=== PATIENT | female | born 1965 | race Caucasian/White ===

== ENCOUNTER 2016-05-18 15:03 | Emergency (ER) | payer SELFPAY | END 2016-05-18 15:55 | disposition left against medical advice (07) | LOC: ER 15:51 | DX: R05 Cough (principal); Z53.21 Procedure and treatment not carried out due to patient leaving prior to being seen by health care provider ==

== ENCOUNTER 2016-06-03 05:32 | Emergency (ER) | payer BC ==
[~2016-06-03] VITALS: Ht 160 cm; Wt 79.4 kg
--- NOTE | 2016-06-03 05:51 | PHYS DOC ---
Adult General Chief Complaint Chief Complaint: CHEST WALL PAIN HPI HPI 50-year-old female with a history of hypertension and diabetes who presents to the emergency department today with chest pain. Her pain is been present for approximately 24-48 hours. She describes as a throbbing sensation of the left side of her chest. She also reports pain in her back on the left that is sharp shooting pain. It is worse with coughs. She recently is getting over an upper respiratory infection. She denies unilateral leg swelling hemoptysis personal or family history of blood clotting disorder. She denies having a history of cardiac disease. She denies nausea vomiting or diaphoresis. She denies the pain being ripping or tearing. She denies it being sudden or severe. Review of systems is negative for abdominal pain nausea vomiting fevers chills. She denies headache. All other review of systems is negative unless otherwise noted in history of present illness. Review of Systems Review of Systems SEE ABOVE. Current Medications Current Medications Current Medications Medications (Trade) Dose Ordered Sig/Jude Start Time Stop Time Status Last Admin Dose Admin Aspirin (Children'S Aspirin) 324 mg 1X ONCE 06/03/16 05:45 06/03/16 05:46 UNV Physical Exam Physical Exam Constitutional: Well developed, well nourished, no acute distress, non-toxic appearance. HENT: Normocephalic, atraumatic, bilateral external ears normal, oropharynx moist, no oral exudates, nose normal. [] Eyes: PERRLA, EOMI, conjunctiva normal, no discharge. Neck: Normal range of motion, no tenderness, supple, no stridor. [] Cardiovascular:Heart rate regular rhythm, no murmur Lungs & Thorax: Bilateral breath sounds clear to auscultation [] Abdomen: Bowel sounds normal, soft, no tenderness, no masses, no pulsatile masses. Skin: Warm, dry, no erythema, no rash. [] Back: No tenderness, no CVA tenderness. Extremities: No tenderness, no cyanosis, no clubbing, ROM intact, no edema. No clinical evidence of DVT present. No erythema or swelling legs. Neurologic: Alert and oriented X 3, normal motor function, normal sensory function, no focal deficits noted. [] Psychologic: Affect normal, judgement normal, mood normal. EKG EKG [] Initial EKG at 6 5:40 AM shows sinus rhythm with a regular rate. [place] is normal. Intervals within normal limits. ST segments are congruent. Not suggestive of ischemia. Radiology/Procedures Radiology/Procedures [] Course & Med Decision Making Course & Med Decision Making Pertinent Labs and Imaging studies reviewed. (See chart for details) [] 50-year-old female presenting to the emergency department this morning with chest pain. EKG unremarkable. Aspirin ordered. I ordered a chest x-ray along with blood work including a troponin. The patient was then signed out to Dr. Montgomery at 6 AM with plans to follow-up on blood work and reexamined patient along with cardiac risk stratification for disposition decision. Dragon Disclaimer Dragon Disclaimer This electronic medical record was generated, in whole or in part, using a voice recognition dictation system. Departure Departure Impression: Primary Impression: Chest pain Referrals: NO PCP (PCP) PAMELA HOBSON MD Jun 03, 2016 05:51
[2016-06-03] MEDS ORDERED: ASPIRIN 81 MG TAB.CHEW PO ONE (06:00)
[2016-06-03 06:02] LABS: BASO # 0.1 x10^3/uL (0.0-0.2); BASO % 1 % (0-3); EOS % 4 % (0-3); HEMATOCRIT 36.2 % (36.0-47.0); HEMOGLOBIN 12.2 g/dL (12.0-15.5); LYMPH # 2.6 x10^3/uL (1.0-4.8); LYMPH % 31 % (24-48); MEAN CORPUSCULAR HEMOGLOBIN 30 pg (25-35); MEAN CORPUSCULAR HGB CONC 34 g/dL (31-37); MEAN CORPUSCULAR VOLUME 88 fL (79-100); MONO % 7 % (0-9); NEUT % 57 % (31-73); PLATELET COUNT 246 x10^3/uL (140-400); RED BLOOD COUNT 4.12 x10^6/uL (3.50-5.40); RED CELL DISTRIBUTION WIDTH 13.9 % (11.5-14.5); WHITE BLOOD COUNT 8.3 x10^3/uL (4.0-11.0)
[2016-06-03 06:21] LABS: CALCIUM 9.2 mg/dL (8.5-10.1); GFR 58.2; POTASSIUM 3.4 mmol/L (3.5-5.1)
[2016-06-03 06:27] LABS: ALBUMIN 3.5 g/dL (3.4-5.0); DIRECT BILIRUBIN 0.1 mg/dL (0.0-0.2); TOTAL BILIRUBIN 0.4 mg/dL (0.2-1.0); TOTAL PROTEIN 7.3 g/dL (6.4-8.2)
[2016-06-03] MEDS ORDERED: AZIT250T6 PO (07:16)
--- NOTE | 2016-06-03 07:17 | PHYS DOC ---
Past Medical History Past Medical History: Asthma, Diabetes-Type II, Hypertension Past Surgical History: No Surgical History Alcohol Use: Occasionally Drug Use: None Adult General HPI HPI See dictation by for history of present illness, exam. Current Medications Current Medications Current Medications Medications (Trade) Dose Ordered Sig/Jude Start Time Stop Time Status Last Admin Dose Admin Aspirin (Children'S Aspirin) 324 mg 1X ONCE 06/03/16 06:00 06/03/16 06:01 DC 06/03/16 06:11 324 MG Allergies Allergies Allergies Coded Allergies Type Severity Reaction Last Updated Verified No Known Drug Allergies 06/03/16 No Current Patient Data Vital Signs Vital Signs Date Time Temp Pulse Resp B/P Pulse Ox O2 Delivery O2 Flow Rate FiO2 06/03/16 07:24 84 18 144/73 95 Room Air 06/03/16 05:40 97.1 97.1 Lab Values Laboratory Tests Test 06/03/16 05:45 White Blood Count 8.3x10^3/uL (4.0-11.0) Red Blood Count 4.12x10^6/uL (3.50-5.40) Hemoglobin 12.2g/dL (12.0-15.5) Hematocrit 36.2% (36.0-47.0) Mean Corpuscular Volume 88fL (79-100) Mean Corpuscular Hemoglobin 30pg (25-35) Mean Corpuscular Hemoglobin Concent 34g/dL (31-37) Red Cell Distribution Width 13.9% (11.5-14.5) Platelet Count 246x10^3/uL (140-400) Neutrophils (%) (Auto) 57% (31-73) Lymphocytes (%) (Auto) 31% (24-48) Monocytes (%) (Auto) 7% (0-9) Eosinophils (%) (Auto) 4% (0-3) H Basophils (%) (Auto) 1% (0-3) Neutrophils # (Auto) 4.7x10^3uL (1.8-7.7) Lymphocytes # (Auto) 2.6x10^3/uL (1.0-4.8) Monocytes # (Auto) 0.6x10^3/uL (0.0-1.1) Eosinophils # (Auto) 0.3x10^3/uL (0.0-0.7) Basophils # (Auto) 0.1x10^3/uL (0.0-0.2) Sodium Level 140mmol/L (136-145) Potassium Level 3.4mmol/L (3.5-5.1) L Chloride Level 103mmol/L (98-107) Carbon Dioxide Level 27mmol/L (21-32) Anion Gap 10 (6-14) Blood Urea Nitrogen 15mg/dL (7-20) Creatinine 1.0mg/dL (0.6-1.0) Estimated GFR (Cockcroft-Gault) 58.2 Glucose Level 221mg/dL (70-99) H Calcium Level 9.2mg/dL (8.5-10.1) Total Bilirubin 0.4mg/dL (0.2-1.0) Direct Bilirubin 0.1mg/dL (0.0-0.2) Aspartate Amino Transferase (AST) 18U/L (15-37) Alanine Aminotransferase (ALT) 23U/L (14-59) Alkaline Phosphatase 95U/L (46-116) Troponin I Quantitative < 0.017ng/mL (0.000-0.055) SC-Czy-J-Type Natriuretic Peptide 97pg/mL (0-124) Total Protein 7.3g/dL (6.4-8.2) Albumin 3.5g/dL (3.4-5.0) Lipase 152U/L (73-393) Laboratory Tests 06/03/16 05:45 Laboratory Tests 06/03/16 05:45 EKG EKG [] Radiology/Procedures Radiology/Procedures One view chest x-ray read by the radiologist, no acute cardiopulmonary findings. [] Course & Med Decision Making Course & Med Decision Making Pertinent Labs and Imaging studies reviewed. (See chart for details) 50-year-old female who was initially seen by Dr. Pastor, presents with the complaint of left-sided pain in the front and back of her chest for about 2 weeks. After test results were available, I went to talk to the patient some more. She told me that about 2 weeks ago she had "the flu" and felt better except that she kept coughing and now she continues to have a cough that is sometimes productive and pain on the left side of her chest that is worse with a deep breath or cough. It reminds her of pain that she had 27 years ago when she had pneumonia. Her also had the flu when she had it and ended up being admitted to the hospital for 2 or 3 days. He is better now. It sounds like this patient had a viral syndrome, possibly influenza, and got better but is left with a cough and some pleuritic chest pain. She is a smoker. Even though her chest x-ray is clear feel like it would be appropriate to treat her for possible early pneumonia and discussed this with her. She is agreeable to that plan. I don't believe her chest pain is cardiac. It's been ongoing for 2 weeks, sounds pleuritic, associated with a cough, troponin and EKG are negative in the ED. [] Dragon Disclaimer Dragon Disclaimer This electronic medical record was generated, in whole or in part, using a voice recognition dictation system. Departure Departure Impression: Primary Impression: Chest pain Additional Impression: Pneumonia Disposition: HOME, SELF-CARE Condition: STABLE Referrals: UNKNOWN PCP NAME (PCP) Patient Instructions: Pneumonia, Adult, [id number] Additional Instructions: As we discussed, we will treat you with antibiotics for possible pneumonia. Take ibuprofen for pain. Use [id number] cough medicine such as cough suppressant and cough drops as needed. If you become short of air or feel worse instead of better, return to emergency. Scripts Azithromycin (Azithromycin Tablet)250 Mg Tablet1 Pkg PO UD #6 TAB For pneumonia Take as directed Prov:JESSY CASTELLANO MD 06/03/16 Problem Qualifiers JESSY CASTELLANO MD Jun 03, 2016 07:16
[2016-06-03 07:24] VITALS: BP 144/73
--- NOTE | 2016-06-03 07:26 | RAD ---
Indication chest pain. A single view of the chest was obtained and is compared to an examination August 24, 2009. The heart and pulmonary vessels appear normal. The lungs are clear. There is no pleural fluid or pneumothorax. Calcified granuloma is noted in the left lung. A significant change in the appearance of the chest is not seen. IMPRESSION: No acute process. No significant change
--- NOTE | 2016-06-03 09:37 | EKG ---
[facility] [address] [place] [address] Test Date: 2016-06-03 Test Time: 05:40:37 Pat Name: BIGG MONSALVE Department: Room: Gender: F Center Maker Hand: : 1965 Requested By: PAMELA HOBSON Order Number: [id number] Reading MD: Malathi Bahena Measurements Intervals [place] Rate: 92 P: 24 MA: 148 QRS: 59 QRSD: 80 T: 54 QT: 360 QTc: 450 Interpretive Statements SINUS RHYTHM NORMAL EKG RI6.01 No previous ECG available for comparison Electronically Signed On 06-03-2016 20:07:35 CDT by Malathi Bahena
== END 2016-06-03 07:24 | disposition home or self-care (01) ==
LOC: ER 05:32
DX: R07.9 Chest pain, unspecified (principal); J18.9 Pneumonia, unspecified organism; I10 Essential (primary) hypertension; E11.9 Type 2 diabetes mellitus without complications; J45.909 Unspecified asthma, uncomplicated
CPT/HCPCS: 36415; 71010; 80048; 80076; 83690; 83880; 84484; 85027; 93005; 99285-25

== ENCOUNTER 2017-01-13 18:03 | Emergency (ER) | payer BC ==
[~2017-01-13 18:03] MED LIST: AZIT250T6 PO
[2017-01-13] MEDS ORDERED: ONDANSETRON PF 4 MG/2 ML VIAL. IV ONE (18:30)
[2017-01-13] MEDS ORDERED: fentaNYL PF VIAL 100 MCG/2 ML VIAL IV PRN (18:30)
[2017-01-13] MEDS ORDERED: IV NORMAL SALINE 1000ML BAG 1,000 ML IV SCH (18:30)
[2017-01-13] MEDS ORDERED: KETOROLAC 30 MG/ML INJ. IV ONE (18:30)
[2017-01-13 18:38] LABS: BILIRUBIN,URINE NEGATIVE (NEG); GLUCOSE,URINE NEGATIVE (NEG); NITRITE,URINE NEGATIVE (NEG); PH,URINE 5.5; PROTEIN,URINE NEGATIVE (NEG-TRACE); UROBILINOGEN,URINE 0.2 mg/dL (0.2 mg/dL)
--- NOTE | 2017-01-13 18:39 | ED.ADGEN ---
Past Medical History Past Medical History: Diabetes-Type II, Hypertension Past Surgical History: No Surgical History Alcohol Use: Occasionally Drug Use: None Adult General Chief Complaint Chief Complaint: FLANK PAIN HPI HPI Patient is a 51 year old woman, history of hypertension, type 2 diabetes mellitus ad 2 diabetes mellitus, hyperlipidemia, which is medically managed, who presents to the emergency department with a complaint of left-sided flank pain, also left back pain, and a feeling of shortness of breath. Patient states that she first noted the left flank pain about 3 days ago, states that it is worse when she lies flat, is persistent, but does wax and wane. She denies any dysuria, or notices of gross hematuria. No discharge vaginally vagina. Denies any injuries, states that she is not certain if she really feels "short of breath or is just because of the pain I don't take a deep breath". Denies any chest pain, states that she does have some nausea, but no vomiting. Denies any diarrhea, any fevers or chills, any sick contacts or exposures. No swelling extremities, no history of DVT in herself or family members. No recent travel or surgery. States that she been compliant with her based medications. Patient was sent to the emergency department for additional evaluation by her primary care provider. Review of Systems Review of Systems Constitutional: Denies fever or chills. [] Eyes: Denies change in visual acuity. [] HENT: Denies nasal congestion or sore throat. [] Respiratory: Denies cough, shortness of breath. Cardiovascular: Denies chest pain or edema. [] GI: Denies abdominal pain, nausea, vomiting, bloody stools or diarrhea. [] : Denies dysuria. [] Musculoskeletal: Denies back pain or joint pain. [] Left-sided flank pain, with some radiation to the left lower quadrant. Also left upper back pain. Integument: Denies rash. [] Neurologic: Denies headache, focal weakness or sensory changes. [] Endocrine: Denies polyuria or polydipsia. [] Lymphatic: Denies swollen glands. [] Psychiatric: Denies depression or anxiety. [] Current Medications Current Medications Current Medications Medications (Trade) Dose Ordered Sig/Jude Start Time Stop Time Status Last Admin Dose Admin Dicyclomine HCl (Bentyl) 10 mg 1X ONCE 01/13/17 21:30 01/13/17 21:31 DC Fentanyl Citrate (Fentanyl 2ml Vial) 25 mcg PRN Q15MIN PRN 01/13/17 18:30 01/13/17 21:52 DC 01/13/17 18:51 25 MCG Ketorolac Tromethamine (Toradol) 10 mg 1X ONCE 01/13/17 18:30 01/13/17 18:35 DC 01/13/17 18:50 10 MG Ondansetron HCl (Zofran) 4 mg 1X ONCE 01/13/17 18:30 01/13/17 18:35 DC 01/13/17 18:51 4 MG Sodium Chloride 1,000 ml @ 1,000 mls/hr Q1H 01/13/17 18:30 01/13/17 19:29 DC 01/13/17 18:49 1,000 MLS/HR Tamsulosin HCl (Flomax) 0.4 mg 1X ONCE 01/13/17 21:30 01/13/17 21:31 DC Allergies Allergies Allergies Coded Allergies Type Severity Reaction Last Updated Verified No Known Drug Allergies 06/03/16 No Physical Exam Physical Exam Constitutional: Well developed, well nourished, no acute distress, non-toxic appearance. [] HENT: Normocephalic, atraumatic, bilateral external ears normal, oropharynx moist, no oral exudates, nose normal. [] Eyes: PERRLA, EOMI, conjunctiva normal, no discharge. [] Neck: Normal range of motion, no tenderness, supple, no stridor. [] Cardiovascular:Heart rate regular rhythm, no murmur, S1, S2, no rubs or gallops. [] Lungs & Thorax: Bilateral breath sounds clear to auscultation, no wheezing, rhonchi, rales. No chest wall crepitus or tenderness. [] Abdomen: Bowel sounds normal, soft, patient with tenderness to palpation in the left lower quadrant, positive for CVA tenderness and left, no masses, no pulsatile masses. [] Skin: Warm, dry, no erythema, no rash. [] Back: No midline or paraspinal tenderness, positive for CVA tenderness on the left.] Extremities: No tenderness, no cyanosis, no clubbing, ROM intact, no edema. [] Neurologic: Alert and oriented X 3, normal motor function, normal sensory function, no focal deficits noted. [] Psychologic: Affect normal, judgement normal, mood normal. [] Current Patient Data Vital Signs Vital Signs Date Time Temp Pulse Resp B/P (MAP) Pulse Ox O2 Delivery O2 Flow Rate FiO2 01/13/17 19:56 18 98 Room Air 01/13/17 19:49 98 140/92 (108) 01/13/17 18:16 98.4 98.4 Lab Values Laboratory Tests Test 01/13/17 18:14 01/13/17 18:40 Urine Collection Type Unknown Urine Color Yellow Urine Clarity Clear Urine pH 5.5 Urine Specific [place] >=1.030 Urine Protein Negative mg/dL (NEG-TRACE) Urine Glucose (UA) Negative mg/dL (NEG) Urine Ketones (Stick) Negative mg/dL (NEG) Urine Blood Small (NEG) Urine Nitrite Negative (NEG) Urine Bilirubin Negative (NEG) Urine Urobilinogen Dipstick 0.2 mg/dL (0.2 mg/dL) Urine Leukocyte Esterase Negative (NEG) Urine RBC 1-2 /HPF (0-2) Urine WBC 5-10 /HPF (0-4) Urine Squamous Epithelial Cells Many /LPF Urine Bacteria Moderate /HPF (0-FEW) Urine Hyaline Casts Few /HPF Urine Mucus Marked /LPF White Blood Count 9.0 x10^3/uL (4.0-11.0) Red Blood Count 4.76 x10^6/uL (3.50-5.40) Hemoglobin 14.2 g/dL (12.0-15.5) Hematocrit 41.4 % (36.0-47.0) Mean Corpuscular Volume 87 fL (79-100) Mean Corpuscular Hemoglobin 30 pg (25-35) Mean Corpuscular Hemoglobin Concent 34 g/dL (31-37) Red Cell Distribution Width 13.3 % (11.5-14.5) Platelet Count 244 x10^3/uL (140-400) Neutrophils (%) (Auto) 66 % (31-73) Lymphocytes (%) (Auto) 25 % (24-48) Monocytes (%) (Auto) 5 % (0-9) Eosinophils (%) (Auto) 3 % (0-3) Basophils (%) (Auto) 1 % (0-3) Neutrophils # (Auto) 6.0 x10^3uL (1.8-7.7) Lymphocytes # (Auto) 2.3 x10^3/uL (1.0-4.8) Monocytes # (Auto) 0.4 x10^3/uL (0.0-1.1) Eosinophils # (Auto) 0.3 x10^3/uL (0.0-0.7) Basophils # (Auto) 0.1 x10^3/uL (0.0-0.2) D-Dimer (Nicole) < 0.27 ug/mlFEU Sodium Level 139 mmol/L (136-145) Potassium Level 3.8 mmol/L (3.5-5.1) Chloride Level 102 mmol/L (98-107) Carbon Dioxide Level 29 mmol/L (21-32) Anion Gap 8 (6-14) Blood Urea Nitrogen 22 mg/dL (7-20) H Creatinine 1.0 mg/dL (0.6-1.0) Estimated GFR (Cockcroft-Gault) 58.0 BUN/Creatinine Ratio 22 (6-20) H Glucose Level 218 mg/dL (70-99) H Calcium Level 9.5 mg/dL (8.5-10.1) Total Bilirubin 0.2 mg/dL (0.2-1.0) Aspartate Amino Transferase (AST) 16 U/L (15-37) Alanine Aminotransferase (ALT) 20 U/L (14-59) Alkaline Phosphatase 117 U/L (46-116) H Troponin I Quantitative < 0.017 ng/mL (0.000-0.055) Total Protein 7.4 g/dL (6.4-8.2) Albumin 3.6 g/dL (3.4-5.0) Albumin/Globulin Ratio 0.9 (1.0-1.7) L Lipase 186 U/L (73-393) Laboratory Tests 01/13/17 18:40 Laboratory Tests 01/13/17 18:40 EKG EKG EC: Sinus rhythm, heart rate 92 beats/minute, upright axis, QTC of 450, NM 146, QRS of 82, mild baseline artifact noted, the restrained motion, however no ST elevations or depressions identified, no evidence of acute ST abnormalities. As interpreted by me. Radiology/Procedures Radiology/Procedures [][facility] [address] [place] [address] IMAGING REPORT Signed PATIENT: BIGG MONSALVE ACCOUNT: [id number] : 1965 LOCATION: ER AGE: 51 SEX: F EXAM STATUS: REG ER ORD. PHYSICIAN: MARY JANE SCOTT DO REASON: L flank pain x 3 days PROCEDURE: CT ABDOMEN PELVIS WO CONTRAST EXAM: Abdomen and pelvis CT without intravenous contrast. HISTORY: Left flank pain. TECHNIQUE: Computed tomographic images of the abdomen and pelvis were obtained without contrast. Multiplanar reformatting was performed. *One or more of the following individualized dose reduction techniques were utilized for this examination: 1. Automated exposure control. 2. Adjustment of the mA and/or kV according to patient size. 3. Use of iterative reconstruction technique. COMPARISON: None. FINDINGS: Evaluation of the lower thorax demonstrate right middle lobe and lingular pleural parenchymal scarring. There is also bilateral posterior dependent and basilar atelectasis. The heart is normal in size. The liver is upper normal in size. The gallbladder, pancreas, spleen and adrenal glands are unremarkable. There is no evidence of nephrolithiasis or obstructive uropathy. The urinary bladder is decompressed. There is no appendicitis. There is moderate colonic stool. There is no bowel obstruction. The uterus and adnexal regions are unremarkable. There is no pathologically enlarged lymph node. There is aortic atherosclerosis. There is no suspicious osseous lesion. There is grade 1 anterolisthesis of L5 on S1. IMPRESSION: 1. No evidence of nephrolithiasis or obstructive uropathy. 2. No alternative acute abdominal or pelvic finding. Electronically signed by: Lorena Burleson MD (01/13/2017 7:23 PM) [facility] DICTATED and SIGNED BY: LORENA BURLESON MD DATE: 01/13/171919 CC: MARY JANE SCOTT DO; UNKNOWN PCP NAME ~ Course & Med Decision Making Course & Med Decision Making Pertinent Labs and Imaging studies reviewed. (See chart for details) Patient agreeable to receiving laboratory studies, and imaging in the emergency room, including CT of the abdomen and pelvis to further elucidate her left flank symptoms, to rule out renal calculi or other concerning cause. Patient also received chest x-ray, ECG, laboratory studies revealed hyperglycemia, but no evidence of other acutely concerning findings, urinalysis revealed a few RBCs , no evidence of infection. CT of abdomen and pelvis revealed no acutely concerning findings, chest x-ray revealed a few small nodules but no evidence of infection or other acutely concerning findings as well. On reevaluation patient states she is feeling better she does still have some pain in the left flank as stated. I did discuss findings with patient, patient is relieved with these findings, and states that she is looking forward to being discharged home , states that she will follow-up with primary care provider if symptoms persist. I did discuss with patient that although no concerning findings were identified during her examination today, that if she does develop any concerning symptoms, or worsening symptoms as discussed she should return to the ED at any time for additional evaluation. Patient voiced understanding and agreement. She was given medication in the ED for analgesia, inguinal difficulty , tolerating by mouth fluids and medications without issue, discharged from pressure from her cyclobenzaprine, clear and detailed return instructions and precautions, plan as above. Dragon Disclaimer Dragon Disclaimer This electronic medical record was generated, in whole or in part, using a voice recognition dictation system. Departure Impression: Primary Impression: Flank pain Additional Impression: Hematuria Disposition: 01 HOME, SELF-CARE Condition: IMPROVED Scripts Cyclobenzaprine Hcl (CYCLOBENZAPRINE HCL) 10 Mg Tablet 10 MG PO PRN TID Y for PAIN, #12 TAB Prov: MARY JANE SCOTT DO 01/13/17 Problem Qualifiers MARY JANE SCOTT DO Jan 13, 2017 18:39
[2017-01-13 18:45] LABS: BACTERIA,URINE MODERATE /HPF (0-FEW); SQUAMOUS EPITHELIAL CELL,UR MANY /LPF
[2017-01-13 18:50] LABS: BASO # 0.1 x10^3/uL (0.0-0.2); BASO % 1 % (0-3); EOS % 3 % (0-3); HEMATOCRIT 41.4 % (36.0-47.0); HEMOGLOBIN 14.2 g/dL (12.0-15.5); LYMPH # 2.3 x10^3/uL (1.0-4.8); LYMPH % 25 % (24-48); MEAN CORPUSCULAR HEMOGLOBIN 30 pg (25-35); MEAN CORPUSCULAR HGB CONC 34 g/dL (31-37); MEAN CORPUSCULAR VOLUME 87 fL (79-100); MONO % 5 % (0-9); NEUT % 66 % (31-73); PLATELET COUNT 244 x10^3/uL (140-400); RED BLOOD COUNT 4.76 x10^6/uL (3.50-5.40); RED CELL DISTRIBUTION WIDTH 13.3 % (11.5-14.5)
[2017-01-13 19:02] LABS: CALCIUM 9.5 mg/dL (8.5-10.1); POTASSIUM 3.8 mmol/L (3.5-5.1)
[2017-01-13 19:07] LABS: ALBUMIN 3.6 g/dL (3.4-5.0); ALBUMIN/GLOBULIN RATIO 0.9 (1.0-1.7); TOTAL BILIRUBIN 0.2 mg/dL (0.2-1.0); TOTAL PROTEIN 7.4 g/dL (6.4-8.2)
--- NOTE | 2017-01-13 19:26 | RAD ---
EXAM: Abdomen and pelvis CT without intravenous contrast. HISTORY: Left flank pain. TECHNIQUE: Computed tomographic images of the abdomen and pelvis were obtained without contrast. Multiplanar reformatting was performed. *One or more of the following individualized dose reduction techniques were utilized for this examination: 1. Automated exposure control. 2. Adjustment of the mA and/or kV according to patient size. 3. Use of iterative reconstruction technique. COMPARISON: None. FINDINGS: Evaluation of the lower thorax demonstrate right middle lobe and lingular pleural parenchymal scarring. There is also bilateral posterior dependent and basilar atelectasis. The heart is normal in size. The liver is upper normal in size. The gallbladder, pancreas, spleen and adrenal glands are unremarkable. There is no evidence of nephrolithiasis or obstructive uropathy. The urinary bladder is decompressed. There is no appendicitis. There is moderate colonic stool. There is no bowel obstruction. The uterus and adnexal regions are unremarkable. There is no pathologically enlarged lymph node. There is aortic atherosclerosis. There is no suspicious osseous lesion. There is grade 1 anterolisthesis of L5 on S1. IMPRESSION: 1. No evidence of nephrolithiasis or obstructive uropathy. 2. No alternative acute abdominal or pelvic finding. Electronically signed by: Lorena Burleson MD (01/13/2017 7:23 PM) [facility]
[2017-01-13 19:49] VITALS: BP 140/92
[2017-01-13] MEDS ORDERED: CYCL10TA2 PO (21:28)
[2017-01-13] MEDS ORDERED: DICYCLOMINE HCL 10 MG CAPSULE PO ONE (21:30)
[2017-01-13] MEDS ORDERED: TAMSULOSIN 0.4 MG CAP.ER.24H. PO ONE (21:30)
--- NOTE | 2017-01-14 06:32 | EKG ---
[facility] [address] [place] [address] Test Date: 2017-01-13 Test Time: 18:39:33 Pat Name: BIGG MONSALVE Department: Room: Gender: F Inspector Process: : 1965 Requested By: MARY JANE SCOTT Order Number: [id number] Reading MD: Adalid Boyce MD Measurements Intervals [place] Rate: 92 P: 51 NC: 146 QRS: 55 QRSD: 82 T: 52 QT: 360 QTc: 450 Interpretive Statements SINUS RHYTHM Electronically Signed On 01-18-2017 10:36:18 LARRY CAR OPERATOR by Adalid Boyce MD
--- NOTE | 2017-01-14 07:16 | RAD ---
2 view CXR: Clinical indications: Shortness of breath today. Comparison: June 03, 2016. Findings: Old granulomatous disease is seen. No acute lung infiltrate or pleural effusion or pulmonary edema or lung mass or pneumothorax is seen. The heart size, pulmonary vasculature, mediastinum and both ladonna are unremarkable. The osseous structures appear intact. Impression: No acute radiographic abnormality is seen.
== END 2017-01-13 21:34 | disposition home or self-care (01) ==
LOC: ER 18:03
DX: R10.32 Left lower quadrant pain (principal); R31.9 Hematuria, unspecified; M54.89 Other dorsalgia; E11.9 Type 2 diabetes mellitus without complications; I10 Essential (primary) hypertension; E78.5 Hyperlipidemia, unspecified
CPT/HCPCS: 36415; 71020; 74176; 80053; 81001; 83690; 84484; 85025; 85379; 87086; 93005; 96361; 96374; 96375; 99285; J1885; J2405; J3010; J7030

== ENCOUNTER 2017-12-18 17:18 | Emergency (ER) | payer BC ==
[~2017-12-18] VITALS: Ht 167.6 cm; Wt 81.6 kg
[~2017-12-18 17:18] MED LIST changes: +CYCL10TA2 PO
[2017-12-18 17:40] LABS: BASO % 0 % (0-3); EOS # 0.3 x10^3/uL (0.0-0.7); EOS % 4 % (0-3); HEMATOCRIT 40.8 % (36.0-47.0); HEMOGLOBIN 14.5 g/dL (12.0-15.5); LYMPH # 3.3 x10^3/uL (1.0-4.8); LYMPH % 38 % (24-48); MEAN CORPUSCULAR HEMOGLOBIN 31 pg (25-35); MEAN CORPUSCULAR HGB CONC 36 g/dL (31-37); MEAN CORPUSCULAR VOLUME 86 fL (79-100); MONO # 0.7 x10^3/uL (0.0-1.1); MONO % 8 % (0-9); NEUT # 4.3 x10^3uL (1.8-7.7); NEUT % 50 % (31-73); PLATELET COUNT 226 x10^3/uL (140-400); RED BLOOD COUNT 4.73 x10^6/uL (3.50-5.40); RED CELL DISTRIBUTION WIDTH 13.2 % (11.5-14.5); WHITE BLOOD COUNT 8.6 x10^3/uL (4.0-11.0)
[2017-12-18 17:49] LABS: CALCIUM 9.6 mg/dL (8.5-10.1); GFR 57.8
--- NOTE | 2017-12-18 18:12 | RAD ---
PORTABLE CHEST 1V History: CHEST PAIN; SOA. Comparison: January 13, 2017 image without prior report. Cardiomediastinal silhouette: Stable Lungs: Dense nodule left lung is stable compatible with granuloma. No focal airspace consolidation. There is evidence of air-trapping/emphysema. Pleura: No evidence of pleural effusion. Pneumothorax: None visualized Impression: No acute infiltrate identified. Electronically signed by: Edy Hagen MD (12/18/2017 6:09 PM) [id number]
[2017-12-18] MEDS ORDERED: ASPIRIN 325 MG TABLET PO ONE (18:30)
[2017-12-18] MEDS ORDERED: ALBUTEROL SULFATE 2.5 MG/3 ML NEBU. NEB ONE (18:30)
[2017-12-18] MEDS ORDERED: DEXAMETHASONE SOD PHOS 20 MG/5 ML VIAL. IV ONE (18:30)
--- NOTE | 2017-12-18 19:08 | EKG ---
[facility] [address] [place] [address] Test Date: 2017-12-18 Test Time: 17:27:26 Pat Name: BIGG MONSALVE Department: Room: Gender: F Technical Training Instructor: : 1965 Requested By: JEFERSON PARK Order Number: [id number] Reading MD: Adalid Boyce MD Measurements Intervals [place] Rate: 107 P: 39 CT: 148 QRS: 64 QRSD: 84 T: 38 QT: 350 QTc: 467 Interpretive Statements SINUS TACHYCARDIA Electronically Signed On 12-20-2017 9:05:23 CDT by Adalid Boyce MD
[2017-12-18] MEDS ORDERED: CONTRAST GIVEN. MC PRN (19:45)
--- NOTE | 2017-12-18 19:50 | RAD ---
CT ANGIOGRAPHY CHEST Indication: chest pain, soa; Omni 300, 60ml . Comparison: No comparison is available. Technique: After intravenous contrast administration, CT imaging was performed of the chest. MIP reconstructions were obtained. Exposure: One or more of the following individualized dose reduction techniques were utilized for this examination: 1. Automated exposure control 2. Adjustment of the mA and/or kV according to patient size 3. Use of iterative reconstruction technique. FINDINGS: Pulmonary arteries:No evidence of pulmonary embolism. Thoracic aorta: Mildly calcified, no evidence of aneurysm. Insufficiently opacified to confidently exclude dissection. Thyroid gland:Visualized aspect is unremarkable. Lymph nodes:No significant enlargement Heart: Calcification, not enlarged. Esophagus: Unremarkable Pleural spaces: No significant effusion Lungs: Emphysematous change with small blebs and bullae. Densely calcified granuloma in the left upper lobe. Trachea and central airways: Patent Bones: Degenerative spondylosis. Upper abdomen: Slices through the upper abdomen are limited due to the technique .No obvious acute findings. IMPRESSION: Negative for pulmonary embolism. Emphysema. Electronically signed by: Edy Hagen MD (12/18/2017 7:47 PM) [facility]
--- NOTE | 2017-12-18 19:53 | PHYS DOC ---
Past Medical History Past Medical History: Diabetes-Type II, Hypertension Past Surgical History: No Surgical History Alcohol Use: Occasionally Drug Use: None Adult General Chief Complaint Chief Complaint: CHEST PAIN HPI HPI Patient is a 52 year old female who presents to the ER with complaints of left sided chest pain that wraps to her left upper back and into L shoulder for the last year. Pt states she has been seen for these symptoms several times and no one can tell her what is wrong. Her PCP prescribed a muscle relaxer that is not helping. She states that she has been to the ER 3x for the same complaint and to her PCP several times, she reports frustration due to no one telling her what is wrong with her. She denies any palpitations, nausea, vomiting, or abdominal pain. States that at times she feels short of breath with the pain. She denies any syncope. States she is a smoker and smokes about a pack a day. Pt states that the pain in her L shoulder increases when she moves her arm. Review of Systems Review of Systems Constitutional: Denies fever or chills [] Eyes: Denies change in visual acuity, redness, or eye pain [] HENT: Denies nasal congestion or sore throat [] Respiratory: Denies cough or shortness of breath [] Cardiovascular: No additional information not addressed in HPI [] GI: Denies abdominal pain, nausea, vomiting, bloody stools or diarrhea [] : Denies dysuria or hematuria [] Musculoskeletal: Denies back pain or joint pain [] Integument: Denies rash or skin lesions [] Neurologic: Denies headache, focal weakness or sensory changes [] Endocrine: Denies polyuria or polydipsia [] All other systems were reviewed and found to be within normal limits, except as documented in this note. Current Medications Current Medications Current Medications Medications (Trade) Dose Ordered Sig/Jude Start Time Stop Time Status Last Admin Dose Admin Albuterol Sulfate (Ventolin Neb Soln) 2.5 mg 1X ONCE 12/18/17 18:30 12/18/17 18:31 DC 12/18/17 18:22 2.5 MG Aspirin (Celi Aspirin) 325 mg 1X ONCE 12/18/17 18:30 12/18/17 18:31 DC 12/18/17 18:15 325 MG Dexamethasone Sodium Phosphate (Decadron) 10 mg 1X ONCE 12/18/17 18:30 12/18/17 18:31 DC 12/18/17 18:16 10 MG Info (CONTRAST GIVEN -- Rx MONITORING) 1 each PRN DAILY PRN 12/18/17 19:45 12/18/17 20:51 DC Iohexol (Omnipaque 300 Mg/ml) 60 ml 1X ONCE 12/18/17 20:00 12/18/17 20:01 DC 12/18/17 19:40 60 ML Allergies Allergies Allergies Coded Allergies Type Severity Reaction Last Updated Verified No Known Drug Allergies 06/03/16 No Physical Exam Physical Exam Constitutional: Well developed, well nourished, no acute distress, non-toxic appearance. [] HENT: Normocephalic, atraumatic, bilateral external ears normal, oropharynx moist, no oral exudates, nose normal. [] Eyes: PERRLA, EOMI, conjunctiva normal, no discharge. [] Neck: Normal range of motion, no tenderness, supple, no stridor. [] Cardiovascular:Heart rate regular rhythm, no murmur [] Lungs & Thorax: Bilateral breath sounds clear to auscultation [] Abdomen: Bowel sounds normal, soft, no tenderness, no masses, no pulsatile masses. [] Skin: Warm, dry, no erythema, no rash. [] Back: No tenderness, no CVA tenderness. [] Extremities: No tenderness, no cyanosis, no clubbing, ROM intact, no edema. [] Neurologic: Alert and oriented X 3, normal motor function, normal sensory function, no focal deficits noted. [] Psychologic: Affect normal, judgement normal, mood normal. [] Current Patient Data Vital Signs Vital Signs Date Time Temp Pulse Resp B/P (MAP) Pulse Ox O2 Delivery O2 Flow Rate FiO2 12/18/17 20:00 70 18 117/66 (83) 99 12/18/17 18:30 Room Air 12/18/17 17:29 97.8 97.8 Lab Values Laboratory Tests Test 12/18/17 17:30 White Blood Count 8.6 x10^3/uL (4.0-11.0) Red Blood Count 4.73 x10^6/uL (3.50-5.40) Hemoglobin 14.5 g/dL (12.0-15.5) Hematocrit 40.8 % (36.0-47.0) Mean Corpuscular Volume 86 fL (79-100) Mean Corpuscular Hemoglobin 31 pg (25-35) Mean Corpuscular Hemoglobin Concent 36 g/dL (31-37) Red Cell Distribution Width 13.2 % (11.5-14.5) Platelet Count 226 x10^3/uL (140-400) Neutrophils (%) (Auto) 50 % (31-73) Lymphocytes (%) (Auto) 38 % (24-48) Monocytes (%) (Auto) 8 % (0-9) Eosinophils (%) (Auto) 4 % (0-3) H Basophils (%) (Auto) 0 % (0-3) Neutrophils # (Auto) 4.3 x10^3uL (1.8-7.7) Lymphocytes # (Auto) 3.3 x10^3/uL (1.0-4.8) Monocytes # (Auto) 0.7 x10^3/uL (0.0-1.1) Eosinophils # (Auto) 0.3 x10^3/uL (0.0-0.7) Basophils # (Auto) 0.0 x10^3/uL (0.0-0.2) Sodium Level 140 mmol/L (136-145) Potassium Level 4.0 mmol/L (3.5-5.1) Chloride Level 102 mmol/L (98-107) Carbon Dioxide Level 26 mmol/L (21-32) Anion Gap 12 (6-14) Blood Urea Nitrogen 20 mg/dL (7-20) Creatinine 1.0 mg/dL (0.6-1.0) Estimated GFR (Cockcroft-Gault) 57.8 Glucose Level 192 mg/dL (70-99) H Calcium Level 9.6 mg/dL (8.5-10.1) Troponin I Quantitative < 0.017 ng/mL (0.000-0.055) Laboratory Tests 12/18/17 17:30 Laboratory Tests 12/18/17 17:30 EKG EKG [] Radiology/Procedures Radiology/Procedures PROCEDURE: CT ANGIOGRAPHY CHEST CT ANGIOGRAPHY CHEST Indication: chest pain, soa; Omni 300, 60ml . Comparison: No comparison is available. Technique: After intravenous contrast administration, CT imaging was performed of the chest. MIP reconstructions were obtained. Exposure: One or more of the following individualized dose reduction techniques were utilized for this examination: 1. Automated exposure control 2. Adjustment of the mA and/or kV according to patient size 3. Use of iterative reconstruction technique. FINDINGS: Pulmonary arteries:No evidence of pulmonary embolism. Thoracic aorta: Mildly calcified, no evidence of aneurysm. Insufficiently opacified to confidently exclude dissection. Thyroid gland:Visualized aspect is unremarkable. Lymph nodes:No significant enlargement Heart: Calcification, not enlarged. Esophagus: Unremarkable Pleural spaces: No significant effusion Lungs: Emphysematous change with small blebs and bullae. Densely calcified granuloma in the left upper lobe. Trachea and central airways: Patent Bones: Degenerative spondylosis. Upper abdomen: Slices through the upper abdomen are limited due to the technique .No obvious acute findings. IMPRESSION: Negative for pulmonary embolism. Emphysema. [] PROCEDURE: PORTABLE CHEST 1V PORTABLE CHEST 1V History: CHEST PAIN; SOA. Comparison: January 13, 2017 image without prior report. Cardiomediastinal silhouette: Stable Lungs: Dense nodule left lung is stable compatible with granuloma. No focal airspace consolidation. There is evidence of air-trapping/emphysema. Pleura: No evidence of pleural effusion. Pneumothorax: None visualized Impression: No acute infiltrate identified. Course & Med Decision Making Course & Med Decision Making Pertinent Labs and Imaging studies reviewed. (See chart for details) [] Dragon Disclaimer Dragon Disclaimer This electronic medical record was generated, in whole or in part, using a voice recognition dictation system. Departure Departure Impression: Primary Impression: Left shoulder pain Additional Impression: Chest pain Disposition: 01 HOME, SELF-CARE Condition: STABLE Referrals: UNKNOWN PCP NAME (PCP) BRANDY HENRY MD Patient Instructions: Chest Pain (Nonspecific)-Brief, Shoulder Pain, Easy-to- Read Additional Instructions: Stop smoking. Follow up with your primary care doctor about your emphysema and chest pain. Recommend evaluation of your Left shoulder by an orthopedic doctor, Dr. Henry's information has been provided. Return to the ER if you symptoms worsen Problem Qualifiers Primary Impression: Left shoulder pain Chronicity: acute Qualified Codes: M25.512 - Pain in left shoulder SUKHDEEPHALEY SENIOR RECRUITER Dec 18, 2017 19:53
[2017-12-18 20:00] VITALS: BP 117/66
[2017-12-18] MEDS ORDERED: IOHEXOL 300 MG/ML 100ML VIAL. IV ONE (20:00)
== END 2017-12-18 20:50 | disposition home or self-care (01) ==
LOC: ER 17:18
DX: R07.89 Other chest pain (principal); M25.512 Pain in left shoulder; F17.200 Nicotine dependence, unspecified, uncomplicated; E11.9 Type 2 diabetes mellitus without complications; I10 Essential (primary) hypertension
CPT/HCPCS: 36415; 71045; 71275; 80048; 84484; 85025; 93005; 94640; 96374; 99285; J1100; J7613; Q9967

== ENCOUNTER 2018-05-12 00:38 | Inpatient (IN) | payer BC ==
[~2018-05-12] VITALS: Ht 167.6 cm; Wt 75.9 kg
[2018-05-12] VITALS (10 sets, daily range): BP systolic 95–159; BP diastolic 46–97
[2018-05-12] MEDS ORDERED: IV NORMAL SALINE 1000ML BAG 1,000 ML IV ONE (01:30)
[2018-05-12 01:33] LABS: BILIRUBIN,URINE NEGATIVE (NEG); CLARITY,URINE CLEAR; COLOR,URINE YELLOW; NITRITE,URINE NEGATIVE (NEG); PROTEIN,URINE NEGATIVE (NEG-TRACE); UROBILINOGEN,URINE 0.2 mg/dL (0.2 mg/dL)
[2018-05-12 01:33] LABS: BASO # 0.1 x10^3/uL (0.0-0.2); BASO % 1 % (0-3); EOS # 0.3 x10^3/uL (0.0-0.7); EOS % 4 % (0-3); HEMATOCRIT 43.8 % (36.0-47.0); HEMOGLOBIN 14.7 g/dL (12.0-15.5); LYMPH # 1.9 x10^3/uL (1.0-4.8); LYMPH % 24 % (24-48); MEAN CORPUSCULAR HEMOGLOBIN 29 pg (25-35); MEAN CORPUSCULAR HGB CONC 34 g/dL (31-37); MEAN CORPUSCULAR VOLUME 86 fL (79-100); MONO # 0.8 x10^3/uL (0.0-1.1); MONO % 10 % (0-9); NEUT # 4.8 x10^3uL (1.8-7.7); NEUT % 61 % (31-73); PLATELET COUNT 201 x10^3/uL (140-400); RED BLOOD COUNT 5.11 x10^6/uL (3.50-5.40); RED CELL DISTRIBUTION WIDTH 13.5 % (11.5-14.5); WHITE BLOOD COUNT 7.8 x10^3/uL (4.0-11.0)
[2018-05-12 01:37] LABS: RBC,URINE OCC /HPF (0-2)
[2018-05-12 01:38] LABS: BACTERIA,URINE MODERATE /HPF (0-FEW); SQUAMOUS EPITHELIAL CELL,UR MOD /LPF
[2018-05-12 01:40] LABS: CALCIUM 9.4 mg/dL (8.5-10.1); GFR 57.8; POTASSIUM 3.7 mmol/L (3.5-5.1); PROTHROMBIN TIME PATIENT 12.7 SEC (11.7-14.0)
--- NOTE | 2018-05-12 01:42 | PHYS DOC ---
Past Medical History Past Medical History: Diabetes-Type II, Hypertension Past Surgical History: No Surgical History Alcohol Use: Occasionally Drug Use: None Adult General Chief Complaint Chief Complaint: CHEST PAIN HPI HPI Patient is a 52 year old female presents to the ED with chest pain. This started one week ago. She went to her PCP with flulike symptoms and chest pain. She was told that her blood pressure was high and to take an extra blood pressure medicine. Today she coughed up a "hunk of blood", had a fever 103, cough, and persistent chest pain that is retrosternal, described as a 5/10 pressure-like pain which radiates to the left arm. She reports vomiting after breakfast between 7-9am this morning. She has not had any nausea or vomiting since then. Review of Systems Review of Systems Constitutional: Admits fever and chills. Eyes: Denies change in visual acuity, redness, or eye pain [] HENT: Denies nasal congestion or sore throat [] Respiratory: Admits cough. Denies shortness of breath [] Cardiovascular: Admits chest pain. Denies palpitations. GI: Admits vomiting. Denies nausea, abdominal pain, or diarrhea [] : Denies dysuria or hematuria [] Musculoskeletal: Denies back pain or joint pain [] Integument: Denies rash or skin lesions [] Neurologic: Denies headache, focal weakness or sensory changes [] Complete systems were reviewed and found to be within normal limits, except as documented in this note. Current Medications Current Medications Current Medications Medications (Trade) Dose Ordered Sig/Jude Start Time Stop Time Status Last Admin Dose Admin Sodium Chloride 1,000 ml @ 1,000 mls/hr 1X ONCE 05/12/18 01:30 05/12/18 02:29 DC 05/12/18 01:37 1,000 MLS/HR Allergies Allergies Allergies Coded Allergies Type Severity Reaction Last Updated Verified No Known Drug Allergies 06/03/16 No Physical Exam Physical Exam Constitutional: Well developed, well nourished, no acute distress, non-toxic appearance. [] HENT: Normocephalic, atraumatic, oropharynx moist, no oral exudates, nose normal , oropharynx slightly erythematous. [] Eyes: EOMI, conjunctiva normal, no discharge. [] Neck: Normal range of motion, no tenderness, supple, no stridor. [] Cardiovascular: Tachycardic. Regular rhythm. Systolic murmur. Lungs & Thorax: Bilateral breath sounds clear to auscultation [] Abdomen: Soft, no tenderness Skin: Warm, dry, no erythema, no rash. [] Back: No tenderness, no CVA tenderness. [] Extremities: No tenderness, ROM intact, no edema. [] Neurologic: Alert and oriented, normal motor function, normal sensory function, no focal deficits noted. [] Psychologic: Affect normal, judgement normal, mood normal. [] Current Patient Data Vital Signs Vital Signs Date Time Temp Pulse Resp B/P (MAP) Pulse Ox O2 Delivery O2 Flow Rate FiO2 05/12/18 02:00 92 20 172/94 (120) 95 Room Air 05/12/18 00:40 98.4 98.4 Lab Values Laboratory Tests Test 05/12/18 00:40 05/12/18 00:46 05/12/18 00:55 Urine Collection Type Unknown Urine Color Yellow Urine Clarity Clear Urine pH 5.0 Urine Specific [place] 1.025 Urine Protein Negative mg/dL (NEG-TRACE) Urine Glucose (UA) Negative mg/dL (NEG) Urine Ketones (Stick) Negative mg/dL (NEG) Urine Blood Small (NEG) Urine Nitrite Negative (NEG) Urine Bilirubin Negative (NEG) Urine Urobilinogen Dipstick 0.2 mg/dL (0.2 mg/dL) Urine Leukocyte Esterase Moderate (NEG) Urine RBC Occ /HPF (0-2) Urine WBC 11-20 /HPF (0-4) Urine Squamous Epithelial Cells Mod /LPF Urine Bacteria Moderate /HPF (0-FEW) Urine Mucus Mod /LPF POC Urine HCG, Qualitative Hcg negative (Negative) White Blood Count 7.8 x10^3/uL (4.0-11.0) Red Blood Count 5.11 x10^6/uL (3.50-5.40) Hemoglobin 14.7 g/dL (12.0-15.5) Hematocrit 43.8 % (36.0-47.0) Mean Corpuscular Volume 86 fL (79-100) Mean Corpuscular Hemoglobin 29 pg (25-35) Mean Corpuscular Hemoglobin Concent 34 g/dL (31-37) Red Cell Distribution Width 13.5 % (11.5-14.5) Platelet Count 201 x10^3/uL (140-400) Neutrophils (%) (Auto) 61 % (31-73) Lymphocytes (%) (Auto) 24 % (24-48) Monocytes (%) (Auto) 10 % (0-9) H Eosinophils (%) (Auto) 4 % (0-3) H Basophils (%) (Auto) 1 % (0-3) Neutrophils # (Auto) 4.8 x10^3uL (1.8-7.7) Lymphocytes # (Auto) 1.9 x10^3/uL (1.0-4.8) Monocytes # (Auto) 0.8 x10^3/uL (0.0-1.1) Eosinophils # (Auto) 0.3 x10^3/uL (0.0-0.7) Basophils # (Auto) 0.1 x10^3/uL (0.0-0.2) Prothrombin Time 12.7 SEC (11.7-14.0) Prothrombin Time INR 1.0 (0.8-1.1) Sodium Level 142 mmol/L (136-145) Potassium Level 3.7 mmol/L (3.5-5.1) Chloride Level 104 mmol/L (98-107) Carbon Dioxide Level 28 mmol/L (21-32) Anion Gap 10 (6-14) Blood Urea Nitrogen 16 mg/dL (7-20) Creatinine 1.0 mg/dL (0.6-1.0) Estimated GFR (Cockcroft-Gault) 57.8 BUN/Creatinine Ratio 16 (6-20) Glucose Level 189 mg/dL (70-99) H Hemoglobin A1c 6.2 % (4.8-5.6) H Lactic Acid Level 1.1 mmol/L (0.4-2.0) Calcium Level 9.4 mg/dL (8.5-10.1) Magnesium Level 1.9 mg/dL (1.8-2.4) Total Bilirubin 0.4 mg/dL (0.2-1.0) Aspartate Amino Transferase (AST) 16 U/L (15-37) Alanine Aminotransferase (ALT) 20 U/L (14-59) Alkaline Phosphatase 90 U/L (46-116) Creatine Kinase 68 U/L (26-192) Creatine Kinase MB (Mass) 0.7 ng/mL (0.0-3.6) Creatine Kinase MB Relative Index % (0-4) Troponin I Quantitative < 0.017 ng/mL (0.000-0.055) CA-Hnf-C-Type Natriuretic Peptide 33 pg/mL (0-124) Total Protein 7.7 g/dL (6.4-8.2) Albumin 3.7 g/dL (3.4-5.0) Albumin/Globulin Ratio 0.9 (1.0-1.7) L Lipase 160 U/L (73-393) Laboratory Tests 05/12/18 00:55 Laboratory Tests 05/12/18 00:55 Microbiology 05/12/18 Urine Culture - Final, Complete 05/12/18 Urine Culture Result 1 (SAURAV) - Final, Complete EKG EKG Obtained at 0046 17/09/2018. Sinus tachycardia at 105 bpm. No signs of ST elevation Radiology/Procedures Radiology/Procedures PROCEDURE: CT ANGIOGRAPHY CHEST CTA of chest dated 05/12/2018. No comparison available. CLINICAL INDICATION: Chest pain and hemoptysis. TECHNIQUE: Contiguous axial imaging of the chest performed following the intravenous administration of 75 cc Omnipaque 350. Study was performed as dedicated PE protocol with thin cut coronal MIPS 3-D reconstruction One or more of the following individualized dose reduction techniques were utilized for this examination: 1. Automated exposure control 2. Adjustment of the mA and/or kV according to patient size 3. Use of iterative reconstruction technique. FINDINGS: Contrast bolus is adequate. No evidence of central, lobar or segmental pulmonary embolus. The subsegmental branches are not well evaluated based on technique. Heart size within normal limits. No pericardial effusion. Coronary artery calcifications. Mild ectasia of the ascending thoracic aorta measuring 3.7 cm transverse. No mediastinal, hilar or axillary lymphadenopathy. Borderline enlarged subcarinal and right paratracheal lymph nodes measure up to 8 mm short axis. Thyroid gland is unremarkable. Central airways are patent. Mild emphysema. Mild diffuse bronchial wall thickening. Mild biapical scarring. Calcified granuloma left upper lobe. No consolidation or pleural effusion. Limited images of upper abdomen unremarkable. No acute bony abnormality. IMPRESSION: 1. No evidence of central, lobar or segmental pulmonary embolus. 2. Diffuse bronchial wall thickening and mild emphysema. 3. Borderline enlarged mediastinal lymph nodes, nonspecific. Electronically signed by: Edy Rowe MD (05/12/2018 3:04 AM) [facility] Course & Med Decision Making Course & Med Decision Making Pertinent Labs and Imaging studies reviewed. (See chart for details) Patient is a 52-year-old female who presents to the ED with chest pain, fever, and hemoptysis. Heart score 4. PERC score positive. CTA chest showed no signs of PE. Lab work unremarkable. Initial troponin negative. UA mildly suspicious for infection. Empiric antibiotics given. EKG stable. Given risk factors patient requiring admission for further evaluation and treatment. Discussed with Dr. Marie (hospitalist), who is in agreement with admission. Discussed findings and plan with patient, who acknowledges understanding and agreement. Dragon Disclaimer Dragon Disclaimer This electronic medical record was generated, in whole or in part, using a voice recognition dictation system. Departure Departure Impression: Primary Impression: Chest pain Additional Impressions: History of hemoptysis Urinary tract infection Disposition: ADMITTED INPATIENT Admitting Physician: Other (CYNTHIA) Condition: STABLE Referrals: UNKNOWN PCP NAME (PCP) Scripts Lactobacillus Rhamnosus Gg (CULTURELLE) 1 Each Cap.sprink 1 CAP PO BID for diarrhea for 7 Days, #14 CAP Prov: CAMILLE MARIE MD 05/13/18 Lisinopril (LISINOPRIL) 40 Mg Tablet 40 MG PO DAILY for HTN for 30 Days, #30 TAB 2 Refills Prov: CAMILLE MARIE MD 05/13/18 Chlorthalidone (CHLORTHALIDONE ) 25 Mg Tablet 25 MG PO DAILY for HTN for 30 Days, #30 TAB 2 Refills Prov: CAMILLE MARIE MD 05/13/18 Problem Qualifiers Primary Impression: Chest pain Chest pain type: unspecified Qualified Codes: R07.9 - Chest pain, unspecified Additional Impressions: Urinary tract infection Urinary tract infection type: acute cystitis Hematuria presence: with hematuria Qualified Codes: N30.01 - Acute cystitis with hematuria EDY ACEVEDO DO May 12, 2018 01:42
[2018-05-12 01:48] LABS: ALBUMIN 3.7 g/dL (3.4-5.0); ALBUMIN/GLOBULIN RATIO 0.9 (1.0-1.7); MAGNESIUM 1.9 mg/dL (1.8-2.4); TOTAL BILIRUBIN 0.4 mg/dL (0.2-1.0); TOTAL PROTEIN 7.7 g/dL (6.4-8.2)
[2018-05-12 01:56] LABS: CREATINE KINASE 68 U/L (26-192)
[2018-05-12] MEDS ORDERED: ONDANSETRON PF 4 MG/2 ML VIAL. IV PRN (02:15)
[2018-05-12] MEDS ORDERED: fentaNYL PF VIAL 100 MCG/2 ML VIAL IV PRN (02:15)
[2018-05-12] MEDS ORDERED: CONTRAST GIVEN. MC PRN ×2 (02:30→16:15)
[2018-05-12] MEDS ORDERED: IOHEXOL 350 MG/ML 100 ML VIAL. IV ONE (02:30)
[2018-05-12] MEDS ORDERED: ASPIRIN 325 MG TABLET PO ONE (02:45)
[2018-05-12] MEDS ORDERED: cefTRIAXone IV Push 1 GM VIAL. IVP ONE (02:45)
--- NOTE | 2018-05-12 03:07 | RAD ---
CTA of chest dated 05/12/2018. No comparison available. CLINICAL INDICATION: Chest pain and hemoptysis. TECHNIQUE: Contiguous axial imaging of the chest performed following the intravenous administration of 75 cc Omnipaque 350. Study was performed as dedicated PE protocol with thin cut coronal MIPS 3-D reconstruction One or more of the following individualized dose reduction techniques were utilized for this examination: 1. Automated exposure control 2. Adjustment of the mA and/or kV according to patient size 3. Use of iterative reconstruction technique. FINDINGS: Contrast bolus is adequate. No evidence of central, lobar or segmental pulmonary embolus. The subsegmental branches are not well evaluated based on technique. Heart size within normal limits. No pericardial effusion. Coronary artery calcifications. Mild ectasia of the ascending thoracic aorta measuring 3.7 cm transverse. No mediastinal, hilar or axillary lymphadenopathy. Borderline enlarged subcarinal and right paratracheal lymph nodes measure up to 8 mm short axis. Thyroid gland is unremarkable. Central airways are patent. Mild emphysema. Mild diffuse bronchial wall thickening. Mild biapical scarring. Calcified granuloma left upper lobe. No consolidation or pleural effusion. Limited images of upper abdomen unremarkable. No acute bony abnormality. IMPRESSION: 1. No evidence of central, lobar or segmental pulmonary embolus. 2. Diffuse bronchial wall thickening and mild emphysema. 3. Borderline enlarged mediastinal lymph nodes, nonspecific. Electronically signed by: Edy Rowe MD (05/12/2018 3:04 AM) [facility]
--- NOTE | 2018-05-12 06:52 | EKG ---
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
--- NOTE | 2018-05-12 09:04 | PDOC2 ---
CARLOS MOREL SAMPLE COORDINATOR 05/12/18 0904: CARDIAC CONSULT DATE OF CONSULT Date of Consult DATE: 05/12/18 TIME: 08:30 REASON FOR CONSULT Reason for Consult: Chest pain REFERRING PHYSICIAN Referring Physician: Basilio SOURCE Source: Chart review, Patient HISTORY OF PRESENT ILLNESS HISTORY OF PRESENT ILLNESS This is a pleasant 52 yo female admitted for complains of chest pain. Reports of high BP lately and has been taking lisinopril and actually saw her PCP and was given Rx for BB and cholesterol meds but has not filled yet. Reports that in the last 3 days she has been having fever episode with temp at times at 102 and also x1 cough out an chink of bright red blood the other day. Reports that she has been coughing, nasal congestion, no heartburn. She has been taking thera flu both daytime and nighttime. Her BP has been high running sometimes at 180s/118. 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 She has been having chest pressure with activity and also MCCLURE even before her respiratory symptoms which she thought she had the flu. Reports that it felt like there is fullness and like pressure mid chest but no jaw or arm discomfort. Sometimes she feels like she is having palpitations. No nausea or vomiting. She has COPD but has not been using her albuterol inhalers and no maintenance inhalers. She was DM2 in the past but changed her diet and lost wt and has been off metformin. No known CAD, VTE, arrhythmias. No known previous cardiac testing. PAST MEDICAL HISTORY Cardiovascular: HTN, Hyperlipidemia Pulmonary: COPD CENTRAL NERVOUS SYSTEM: Other (No pertinent history ) GI: No pertinent hx Heme/Onc: No pertinent hx Hepatobiliary: No pertinent hx Psych: No pertinent hx Musculoskeletal: Osteoarthritis Rheumatologic: No pertinent hx Infectious disease: No pertinent hx ENT: No pertinent hx Renal/: Other (3 yrs postmenopausal ) Endocrine: Diabetes Dermatology: No pertinent hx PAST SURGICAL HISTORY Past Surgical History: No pertinent history FAMILY HISTORY Family History: Heart Disease (father) SOCIAL HISTORY Smoke: <1 pack per day (>30 yrs) ALCOHOL: none 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) CURRENT MEDICATIONS CURRENT MEDICATIONS Current Medications Medications (Trade) Dose Ordered Sig/Jude Route PRN Reason Start Time Stop Time Status Last Admin Dose Admin Sodium Chloride 1,000 ml @ 1,000 mls/hr 1X ONCE IV 05/12/18 01:30 05/12/18 02:29 DC 05/12/18 01:37 Iohexol (Omnipaque 350 Mg/ml) 60 ml 1X ONCE IV 05/12/18 02:30 05/12/18 02:31 DC 05/12/18 02:34 Ceftriaxone Sodium (Rocephin) 1 gm 1X ONCE IVP 05/12/18 02:45 05/12/18 02:46 DC 05/12/18 02:53 Aspirin (Celi Aspirin) 325 mg 1X ONCE PO 05/12/18 02:45 05/12/18 02:46 DC 05/12/18 02:53 ALLERGIES ALLERGIES: Coded Allergies: No Known Drug Allergies (Unverified , 06/03/16) ROS Review of System 14 point ROS evaluated with pertinent positives noted per HPI PHYSICAL EXAM General: Alert, Oriented X3, Cooperative, No acute distress HEENT: Atraumatic, Mucous membr. moist/pink, Other (nasal congestion) Lungs: Clear to auscultation, Normal air movement Heart: Regular rate (SR), Normal S1, Normal S2, Other (2/6 systolic murmur to LLS border) Abdomen: Soft, No tenderness Extremities: No cyanosis, No edema Skin: No breakdown, No significant lesion Neuro: Normal speech, Sensation intact Psych/Mental Status: Mental status NL, Mood NL MUSCULOSKELETAL: Osteoarthritic changes both hands VITALS VITALS Vital Signs Date Time Temp Pulse Resp B/P (MAP) Pulse Ox O2 Delivery O2 Flow Rate FiO2 05/12/18 08:00 Room Air 05/12/18 08:00 98.6 88 18 140/97 (111) 96 98.6 LABS Lab: Laboratory Tests Test 05/12/18 00:40 05/12/18 00:46 05/12/18 00:55 05/12/18 05:15 Urine Collection Type Unknown Urine Color Yellow Urine Clarity Clear Urine pH 5.0 Urine Specific [place] 1.025 Urine Protein Negative mg/dL (NEG-TRACE) Urine Glucose (UA) Negative mg/dL (NEG) Urine Ketones (Stick) Negative mg/dL (NEG) Urine Blood Small (NEG) Urine Nitrite Negative (NEG) Urine Bilirubin Negative (NEG) Urine Urobilinogen Dipstick 0.2 mg/dL (0.2 mg/dL) Urine Leukocyte Esterase Moderate (NEG) Urine RBC Occ /HPF (0-2) Urine WBC 11-20 /HPF (0-4) Urine Squamous Epithelial Cells Mod /LPF Urine Bacteria Moderate /HPF (0-FEW) Urine Mucus Mod /LPF Bedside Urine HCG, Qualitative Hcg negative (Negative) White Blood Count 7.8 x10^3/uL (4.0-11.0) Red Blood Count 5.11 x10^6/uL (3.50-5.40) Hemoglobin 14.7 g/dL (12.0-15.5) Hematocrit 43.8 % (36.0-47.0) Mean Corpuscular Volume 86 fL (79-100) Mean Corpuscular Hemoglobin 29 pg (25-35) Mean Corpuscular Hemoglobin Concent 34 g/dL (31-37) Red Cell Distribution Width 13.5 % (11.5-14.5) Platelet Count 201 x10^3/uL (140-400) Neutrophils (%) (Auto) 61 % (31-73) Lymphocytes (%) (Auto) 24 % (24-48) Monocytes (%) (Auto) 10 % (0-9) Eosinophils (%) (Auto) 4 % (0-3) Basophils (%) (Auto) 1 % (0-3) Neutrophils # (Auto) 4.8 x10^3uL (1.8-7.7) Lymphocytes # (Auto) 1.9 x10^3/uL (1.0-4.8) Monocytes # (Auto) 0.8 x10^3/uL (0.0-1.1) Eosinophils # (Auto) 0.3 x10^3/uL (0.0-0.7) Basophils # (Auto) 0.1 x10^3/uL (0.0-0.2) Prothrombin Time 12.7 SEC (11.7-14.0) Prothromb Time International Ratio 1.0 (0.8-1.1) Sodium Level 142 mmol/L (136-145) Potassium Level 3.7 mmol/L (3.5-5.1) Chloride Level 104 mmol/L (98-107) Carbon Dioxide Level 28 mmol/L (21-32) Anion Gap 10 (6-14) Blood Urea Nitrogen 16 mg/dL (7-20) Creatinine 1.0 mg/dL (0.6-1.0) Estimated GFR (Cockcroft-Gault) 57.8 BUN/Creatinine Ratio 16 (6-20) Glucose Level 189 mg/dL (70-99) Lactic Acid Level 1.1 mmol/L (0.4-2.0) Calcium Level 9.4 mg/dL (8.5-10.1) Magnesium Level 1.9 mg/dL (1.8-2.4) Total Bilirubin 0.4 mg/dL (0.2-1.0) Aspartate Amino Transf (AST/SGOT) 16 U/L (15-37) Alanine Aminotransferase (ALT/SGPT) 20 U/L (14-59) Alkaline Phosphatase 90 U/L (46-116) Creatine Kinase 68 U/L (26-192) Creatine Kinase MB (Mass) 0.7 ng/mL (0.0-3.6) Creatine Kinase MB Relative Index % (0-4) Troponin I Quantitative < 0.017 ng/mL (0.000-0.055) < 0.017 ng/mL (0.000-0.055) YQ-Lps-Z-Type Natriuretic Peptide 33 pg/mL (0-124) Total Protein 7.7 g/dL (6.4-8.2) Albumin 3.7 g/dL (3.4-5.0) Albumin/Globulin Ratio 0.9 (1.0-1.7) Lipase 160 U/L (73-393) ASSESSMENT/PLAN ASSESSMENT/PLAN 1. Chest pain: UA features. subtle septal changes. Trop normal so far. 2. AECOPD/URI/fever: no fever so far as an inpt and no maintenance coverage for COPD at home. Defer to PCP 3. Hemoptysis: x1. Hgb stable. unclear etiology. cough and uncontrolled HTN likely contributing 4. Accelerated HTN: better. contributing inadequate coverage and also recent decongestant use 5. Hx of DM2: off metformin with wt loss and diet changes. Likely not resolved FBG 189 6. HLP: new. Rx not started yet 7. CAD: incidental finding coronary calcifications per CT Recommendations 1. TTE, lipids and TSH, A1C 2. Will need to clarify any infectious etiology prior to ischemic w/u. Inpt vs outpt. Await TTE. 3. ASA. Restart home lisinopril, will add chlorthalidone. 4. Smoking cessation CURTIS DHILLON MD 05/12/18 1317: CARDIAC CONSULT ASSESSMENT/PLAN ASSESSMENT/PLAN Pt. seen and examined. AGree with above BOAT PERSON note. Unstable angina. New exertional chest pressure relieved with rest. Multiple risk factors including HTN, smoking, female gender with post- menopausal state. DM2 BP controlled. Will plan for coronary angiography, r/b/a discussed. CARLOS MOREL APRN May 12, 2018 09:04 CURTIS DHILLON MD May 12, 2018 13:17
[2018-05-12] MEDS: LISINOPRIL 20 MG TABLET PO SCH (09:58)
[2018-05-12] MEDS ORDERED: IV 1/2 NORMAL SALINE 1,000 ML IV ONE (10:45)
--- NOTE | 2018-05-12 11:50 | HP ---
ADMIT DATE: 05/12/2018 CHIEF COMPLAINT: Chest pain. HISTORY OF PRESENT ILLNESS: The patient is a pleasant 52-year-old female who presents with chest pain. She states she has been having it off and on for a year. She has been to a couple of doctors and just was not sure if she really got a full workup. It is now worse over the past few days, rated at 5/10 with a pressure-like sensation, worse with movement, better with sitting still, described as agonizing. She took some home meds, but that did not seem to work. The daughter also explains that she did use to have some drug issues, but I do think that is the current problem. We have admitted the patient. She is now going into the ICU. We are going to be consulting Cardiology. They have seen her, they wanted to her to the label maker. PAST MEDICAL HISTORY: Previous drug abuse, but the daughter states that probably has resolved, diabetes, hypertension. ALLERGIES: None. FAMILY HISTORY: Coronary artery disease. SOCIAL HISTORY: She does not currently drink or take drugs, but I think she used to be a heavy drug user. She does smoke. MEDICATIONS: Reviewed, please refer to the MRAD. She is on azithromycin and cyclobenzaprine. REVIEW OF SYSTEMS: GENERAL: No history of weight change, weakness or fevers. SKIN: No bruising, hair changes or rashes. EYES: No blurred, double or loss of vision. NOSE AND THROAT: No history of nosebleeds, hoarseness or sore throat. HEART: She complains of chest pain. LUNGS: Denies cough, hemoptysis, wheezing or shortness of breath. GASTROINTESTINAL: Denies changes in appetite, nausea, vomiting, diarrhea or constipation. GENITOURINARY: No history of frequency, urgency, hesitancy or nocturia. NEUROLOGIC: Denies history of numbness, tingling, tremor or weakness. PSYCHIATRIC: No history of panic, anxiety or depression. ENDOCRINE: No history of heat or cold intolerance, polyuria or polydipsia. EXTREMITIES: Denies muscle weakness, joint pain, pain on walking or stiffness. PHYSICAL EXAMINATION: VITAL SIGNS: Temperature afebrile, pulse 92, respirations 18, blood pressure 144/90. GENERAL: She is alert, cooperative. HEART: Normal S1, S2. LUNGS: Clear, but diminished with a cough consistent with bronchitis. ABDOMEN: Soft. EXTREMITIES: No edema. SKIN: No rash. ENDOCRINE: No thyromegaly. LYMPHATICS: No cervical nodes. HEMATOPOIETIC: No bruising. PSYCHIATRIC: She is anxious. LABORATORY DATA: Troponin is 0. CT of the chest actually showed coronary calcifications, but no PE. ASSESSMENT AND PLAN: Chest pain, rule out coronary artery disease. The patient has been admitted. We are checking serial enzymes, serial EKGs, ICU monitoring. She is going to the label maker today. I suspect she will need a stent or even higher therapy if necessary. PROGNOSIS: Guarded. JONAH BETH DO DR: BARI/luis enrique JOB#: [id number] / [id number]
[2018-05-12] MEDS: IPRATRPIUM/ALBUTEROL 0.5/2.5MG 3 ML NEBU. NEB SCH ×3 (12:00→19:50)
--- NOTE | 2018-05-12 12:48 | CARD ---
MR#: [id number] Date of Study: 05/12/2018 Ordering Physician: CARLOS MOREL, Referring Physician: CAMILLE MARIE, Tech: Hawa Perla APPROVED REPORT EXAM: Two-dimensional and M-mode echocardiogram with Doppler and color Doppler. Other Information Quality : AverageHR: 80bpm INDICATION Chest Pain RISK FACTORS Hypertension Hyperlipidemia Diabetes Smoking 2D DIMENSIONS RVDd2.9 (2.9-3.5cm)Left Atrium(2D)3.3 (1.6-4.0cm) IVSd1.0 (0.7-1.1cm)Aortic Root(2D)3.0 (2.0-3.7cm) LVDd4.2 (3.9-5.9cm)LVOT Diameter2.0 (1.8-2.4cm) PWd1.0 (0.7-1.1cm)LVDs2.2 (2.5-4.0cm) FS (%) 47.5 %SV62.9 ml LVEF(%)79.3 (>50%) Aortic Valve AoV Peak Martín.138.4cm/sAoV VTI30.4cm AO Peak GR.7.7mmHgLVOT VTI 19.78cm AO Mean GR.5mmHg Mitral Valve MV E Kpdxqqkp01.5cm/sMV DECEL [id number] MV A Wxwhiwsp08.4cm/sE/A Ratio1.4 TDI Lateral E' P. V9.04cm/sMedial E' P. V8.92cm/s E/Lateral E'9.5E/Medial E'9.6 Tricuspid Valve TR P. Cjtkceae768nw/sRAP VRIPIIQE4hiFd TR Peak Gr.33ezErVEEP98ccPo Pulmonary Vein S1 Hievjdkj32.9cm/sS2 Umgbxjmc69.65cm/s D2 Axfkcqsz91.6cm/sPVa [id number] LEFT VENTRICLE The left ventricle is normal size. There is normal left ventricular wall thickness. The left ventricu lar systolic function is normal. The Ejection Fraction is 60%. There is normal LV segmental wall karon on. The left ventricular diastolic function and filling is normal for age. RIGHT VENTRICLE The right ventricle is normal size. There is normal right ventricular wall thickness. The right ventr icular systolic function is normal. ATRIA The left atrium size is normal. The right atrium size is normal. The interatrial septum is intact wit h no evidence for an atrial septal defect or patent foramen ovale as noted on 2-D or Doppler imaging. AORTIC VALVE The aortic valve is thickened but opens well. Doppler and Color Flow revealed no significant aortic r egurgitation. There is no significant aortic valvular stenosis. MITRAL VALVE The mitral valve is thickened but opens well. There is no evidence of mitral valve prolapse. There is no mitral valve stenosis. Doppler and Color Flow revealed no mitral valve regurgitation noted. TRICUSPID VALVE The tricuspid valve is normal in structure and function. Doppler and Color Flow revealed no tricuspid valve regurgitation noted. There is no tricuspid valve stenosis. PULMONIC VALVE The pulmonic valve is not well visualized. Doppler and Color Flow revealed no pulmonic valvular regur gitation. GREAT VESSELS The aortic root is normal in size. The IVC is normal in size and collapses >50% with inspiration. PERICARDIAL EFFUSION There is no evidence of significant pericardial effusion. Critical Notification Critical Value: No <Conclusion> The left ventricular systolic function is normal. The Ejection Fraction is 60%. There is normal LV segmental wall motion. No significant valvular abnormalities. There is no evidence of significant pericardial effusion. Signed by : Roger Jules, Electronically Approved : 05/12/2018 12:48:07
[2018-05-12] MEDS ORDERED: IODIXANOL 320 MG/ML 100 ML VIAL. ONE (15:28)
[2018-05-12] MEDS ORDERED: LIDOCAINE 1% PF 2 ML VIAL. ONE (15:28)
[2018-05-12] MEDS ORDERED: MIDAZOLAM HCL/PF 2 MG/2 ML VIAL. ONE (15:41)
[2018-05-12] MEDS ORDERED: VERAPAMIL 5 MG/2 ML VIAL. ONE (15:41)
[2018-05-12] MEDS ORDERED: fentaNYL PF VIAL 100 MCG/2 ML VIAL ONE (15:41)
[2018-05-12] MEDS ORDERED: HEPARIN for IV BOLUS 10,000 UNIT/10 ML VIAL. ONE (15:41)
[2018-05-12] MEDS ORDERED: NITROGLYCERIN 200 MCG/2 ML SYRINGE FOR CATH/VASC LAB. ONE (15:41)
--- NOTE | 2018-05-12 15:44 | PDOC ---
MODERATE SEDATION ASSESSMENT RISKS/ALTERNATIVES Risks/Alternatives Risks and alternatives of this type of sedation and procedure discussed with: RISK/ALTERNATIVES: Patient H & P ON CHART H & P H & P on chart and reviewed for co-morbid conditions and appropriate labs. H&P ON CHART: Yes STATUS PREG STATUS ASSESSED: N/A MEDS/ALLERGIES REVIEWED Meds/Allergies Reviewed Medications and Allergies including time and route of recently administered narcotics and sedatives. MEDS/ALLERGIES REVIEWED: Yes ASA RATING ASA RATING: II AIRWAY ASSESSMENT Airway Assessment Airway patency, oral function limitations, presence of caps, crowns, dentures, partials, and ability to extend neck assessed. AIRWAY ASSESSMENT: Yes MALLAMPATI SCORE MALLAMPATI SCORE: II PRE-SEDATION ASSESSMENT PRE-SEDATION ASSESSMENT: Yes CURTIS DHILLON MD May 12, 2018 15:44
[2018-05-12] MEDS ORDERED: IODIXANOL 320 MG/ML 100 ML VIAL. IART ONE (16:00)
[2018-05-12] MEDS ORDERED: MIDAZOLAM HCL/PF 2 MG/2 ML VIAL. IV ONE (16:00)
[2018-05-12] MEDS ORDERED: NITROGLYCERIN 200 MCG/2 ML SYRINGE FOR CATH/VASC LAB. IART ONE (16:00)
[2018-05-12] MEDS ORDERED: LIDOCAINE 1% PF 2 ML VIAL. INJ ONE (16:00)
[2018-05-12] MEDS ORDERED: HEPARIN for IV BOLUS 10,000 UNIT/10 ML VIAL. IART ONE (16:00)
[2018-05-12] MEDS ORDERED: VERAPAMIL 5 MG/2 ML VIAL. IART ONE (16:00)
[2018-05-12] MEDS ORDERED: fentaNYL PF VIAL 100 MCG/2 ML VIAL IV ONE (16:00)
[2018-05-12] MEDS ORDERED: 0.9 % SODIUM CHLORIDE 10 ML DISP.SYRIN. IV PRN (16:15)
[2018-05-12] MEDS ORDERED: NITROGLYCERIN SUBLINGUAL 0.4 MG BOTTLE OF 25. SL PRN (16:15)
--- NOTE | 2018-05-12 16:19 | CARD ---
MR#: [id number] Date of Study: 05/12/2018 Ordering Physician: CARLOS MOREL, Referring Physician: CAMILLE MARIE, Tech: RT Charanjit (R) SHERRI APPROVED REPORT Technologist: RT Charanjit (R) SHERRI Nurse: Estefany Garces R.N. Procedure(s) performed: MODSED: 15 MIN LHC, Coronary angiography, Left ventriculography HISTORY The patient is a 52 year-old female with a history of : diabetes mellitus with treatment, tobacco his tory() , hypertension, dyslipidemia. INDICATION The indication(s) include : unstable angina . PROCEDURE NARRATIVE INFORMED CONSENT: After explaining the risks and benefits of the procedure and alternatives, informed consent was obtained. The patient was brought electively to the cardiac catheterization lab. A timeout was performed confi rming the patient's name, date of , procedure, and site of procedure. All necessary personnel w ere wearing the appropriate protective equipment and radiation monitor devices. (See nursing notes for medications administered). ACCESS: The right wrist was sterilely prepped and draped in the usual fashion. The right wrist was infiltrat ed with 1 mL of 2% lidocaine for subcutaneous anesthesia. A 6 [place] Terumo glide sheath was inserte d into the right radial artery without difficulty. CORONARY ANGIOGRAPHY: Right and left coronary angiography was performed using a 6Fr TIG 4.0 catheter. Left ventricular en d diastolic pressure was obtained with a TIG catheter and pullback was performed after left ventricul ography. All catheter exchanges and advancements were performed over a guidewire. CLOSURE: At case completion the right radial sheath was removed and a Terumo radial band was applied with 13 m l of air. COMPLICATIONS: The patient tolerated the procedure well and there were no immediate complications. FINDINGS: HEMODYNAMICS: LVEDP 10 mm Hg No gradient on LV to aortic pullback. AO: 110/70 LEFT VENTRICULOGRAM: EF 55% Anterobasal: Normal. Anterolateral: Normal Apical: Normal Diaphragmatic: Normal Posterobasal: Normal CORONARY ANGIOGRAPHY: LM is a large caliber vessel with normal angiographic appearance. LAD is a large caliber vessel with normal angiographic appearance. LCx is a moderate caliber non-dominant vessel with normal angiographic appearance. OM1 is a moderate caliber vessel with normal angiographic appearance. RCA is a large caliber dominant vessel with mild luminal irregularities of up to 20%. RPDA and RPL are small to moderate caliber vessels with normal angiographic appearance. Conclusion 1. Normal left sided filling pressures. 2. Normal LV systolic function. EF 55% 3. No significant coronary disease. Recommendations Aggressive Medical Therapy Signed by : Adalid Boyce, Electronically Approved : 05/12/2018 16:19:25
[2018-05-12] MEDS: ACETAMINOPHEN 325 MG TABLET. PO PRN (17:39)
--- NOTE | 2018-05-12 19:45 | NUR ---
Report called to Mildred BUSH on [facility].
--- NOTE | 2018-05-12 20:00 | NUR ---
Pt transferred to room 211 via wheelchair with all belongings at this time.
[2018-05-12] MEDS ORDERED: cefTRIAXone IV Push 1 GM VIAL. IVP SCH (21:00)
[2018-05-12 23:15] LABS: HEMOGLOBIN A1C 6.2 % (4.8-5.6)
[2018-05-13 02:49] VITALS: BP 115/72
[2018-05-13 07:00] VITALS: BP 122/66
--- NOTE | 2018-05-13 07:29 | PDOC ---
PROGRESS NOTES Chief Complaint Chief Complaint Chest pain: UA features. subtle septal changes. Trop normal so far. AECOPD/URI/fever: no fever so far as an inpt and no maintenance coverage for COPD at home. Defer to PCP Hemoptysis: x1. Hgb stable. unclear etiology. cough and uncontrolled HTN likely contributing Accelerated HTN: better. contributing inadequate coverage and also recent decongestant use Hx of DM2: off metformin with wt loss and diet changes. Likely not resolved FBG 189. A1c 6.2, meets criteria for prediabetes now HLP: new. Rx not started yet CAD: incidental finding coronary calcifications per CT History of Present Illness History of Present Illness 52 yo female admitted for complains of chest pain. Reports of high BP lately and has been taking lisinopril and actually saw her PCP and was given Rx for BB and cholesterol meds but has not filled yet. Reports that in the last 3 days she has been having fever episode with temp at times at 102 and also x1 cough out an chink of bright red blood the other day. Reports that she has been coughing, nasal congestion, no heartburn. She has been taking thera flu both daytime and nighttime. Her BP has been high running sometimes at 180s/118. 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 She has been having chest pressure with activity and also MCCLURE even before her respiratory symptoms which she thought she had the flu. Reports that it felt like there is fullness and like pressure mid chest but no jaw or arm discomfort. Sometimes she feels like she is having palpitations. No nausea or vomiting. She has COPD but has not been using her albuterol inhalers and no maintenance inhalers. She was DM2 in the past but changed her diet and lost wt and has been off metformin. No known CAD, VTE, arrhythmias. No known previous cardiac testing. She underwent negative CTPA that showed bronchitis, treated with rocephin and azithromycin IV as she had some vomiting. She had elevated troponin and elevated BP and due to this and her chest pressure she went for urgent cardiac cath: 1. Normal left sided filling pressures. 2. Normal LV systolic function. EF 55% 3. No significant coronary disease. She felt improved with addition of chlorthalidone and lisinopril. Discharged on these. Greater than 30 minutes spent on discharge including counseling on methamphetamine abstinence. Vitals Vitals Vital Signs Date Time Temp Pulse Resp B/P (MAP) Pulse Ox O2 Delivery O2 Flow Rate FiO2 05/13/18 02:49 98.1 74 18 115/72 (86) 96 Room Air 98.1 05/12/18 16:11 2.0 Physical Exam General: Alert, Oriented X3, Cooperative, No acute distress Heart: Regular rate (SR), Normal S1, Normal S2, Other (2/6 systolic murmur to LLS border) Abdomen: Soft, No tenderness Extremities: No cyanosis, No edema Skin: No breakdown, No significant lesion Labs LABS Laboratory Tests Test 05/12/18 08:20 Troponin I Quantitative < 0.017 ng/mL (0.000-0.055) Assessment and Plan Assessmemt and Plan Problems Medical Problems: (1) Chest pain Status: Acute (2) Urinary tract infection Status: Acute Comment Review of Relevant I have reviewed the following items brando (where applicable) has been applied. Labs Laboratory Tests Test 05/12/18 00:40 05/12/18 00:46 05/12/18 00:55 05/12/18 05:15 Urine Collection Type Unknown Urine Color Yellow Urine Clarity Clear Urine pH 5.0 Urine Specific [place] 1.025 Urine Protein Negative mg/dL (NEG-TRACE) Urine Glucose (UA) Negative mg/dL (NEG) Urine Ketones (Stick) Negative mg/dL (NEG) Urine Blood Small (NEG) Urine Nitrite Negative (NEG) Urine Bilirubin Negative (NEG) Urine Urobilinogen Dipstick 0.2 mg/dL (0.2 mg/dL) Urine Leukocyte Esterase Moderate (NEG) Urine RBC Occ /HPF (0-2) Urine WBC 11-20 /HPF (0-4) Urine Squamous Epithelial Cells Mod /LPF Urine Bacteria Moderate /HPF (0-FEW) Urine Mucus Mod /LPF Bedside Urine HCG, Qualitative Hcg negative (Negative) White Blood Count 7.8 x10^3/uL (4.0-11.0) Red Blood Count 5.11 x10^6/uL (3.50-5.40) Hemoglobin 14.7 g/dL (12.0-15.5) Hematocrit 43.8 % (36.0-47.0) Mean Corpuscular Volume 86 fL (79-100) Mean Corpuscular Hemoglobin 29 pg (25-35) Mean Corpuscular Hemoglobin Concent 34 g/dL (31-37) Red Cell Distribution Width 13.5 % (11.5-14.5) Platelet Count 201 x10^3/uL (140-400) Neutrophils (%) (Auto) 61 % (31-73) Lymphocytes (%) (Auto) 24 % (24-48) Monocytes (%) (Auto) 10 % (0-9) Eosinophils (%) (Auto) 4 % (0-3) Basophils (%) (Auto) 1 % (0-3) Neutrophils # (Auto) 4.8 x10^3uL (1.8-7.7) Lymphocytes # (Auto) 1.9 x10^3/uL (1.0-4.8) Monocytes # (Auto) 0.8 x10^3/uL (0.0-1.1) Eosinophils # (Auto) 0.3 x10^3/uL (0.0-0.7) Basophils # (Auto) 0.1 x10^3/uL (0.0-0.2) Prothrombin Time 12.7 SEC (11.7-14.0) Prothromb Time International Ratio 1.0 (0.8-1.1) Sodium Level 142 mmol/L (136-145) Potassium Level 3.7 mmol/L (3.5-5.1) Chloride Level 104 mmol/L (98-107) Carbon Dioxide Level 28 mmol/L (21-32) Anion Gap 10 (6-14) Blood Urea Nitrogen 16 mg/dL (7-20) Creatinine 1.0 mg/dL (0.6-1.0) Estimated GFR (Cockcroft-Gault) 57.8 BUN/Creatinine Ratio 16 (6-20) Glucose Level 189 mg/dL (70-99) Hemoglobin A1c 6.2 % (4.8-5.6) Lactic Acid Level 1.1 mmol/L (0.4-2.0) Calcium Level 9.4 mg/dL (8.5-10.1) Magnesium Level 1.9 mg/dL (1.8-2.4) Total Bilirubin 0.4 mg/dL (0.2-1.0) Aspartate Amino Transf (AST/SGOT) 16 U/L (15-37) Alanine Aminotransferase (ALT/SGPT) 20 U/L (14-59) Alkaline Phosphatase 90 U/L (46-116) Creatine Kinase 68 U/L (26-192) Creatine Kinase MB (Mass) 0.7 ng/mL (0.0-3.6) Creatine Kinase MB Relative Index % (0-4) Troponin I Quantitative < 0.017 ng/mL (0.000-0.055) < 0.017 ng/mL (0.000-0.055) [id number]-Type Natriuretic Peptide 33 pg/mL (0-124) Total Protein 7.7 g/dL (6.4-8.2) Albumin 3.7 g/dL (3.4-5.0) Albumin/Globulin Ratio 0.9 (1.0-1.7) Lipase 160 U/L (73-393) Triglycerides Level 101 mg/dL (0-150) Cholesterol Level 140 mg/dL (0-200) LDL Cholesterol, Calculated 85 mg/dL (0-100) VLDL Cholesterol, Calculated 20 mg/dL (0-40) Non-HDL Cholesterol Calculated 105 mg/dL (0-129) HDL Cholesterol 35 mg/dL (40-60) Cholesterol/HDL Ratio 4.0 Thyroid Stimulating Hormone (TSH) 2.767 uIU/mL (0.358-3.74) Test 05/12/18 08:20 Troponin I Quantitative < 0.017 ng/mL (0.000-0.055) Laboratory Tests Test 05/12/18 08:20 Troponin I Quantitative < 0.017 ng/mL (0.000-0.055) Medications Current Medications Sodium Chloride 1,000 ml @ 1,000 mls/hr 1X ONCE IV Last administered on at 01:37; Start 05/12/18 at 01:30; Stop 05/12/18 at 02:29; Status DC Ondansetron HCl (Zofran) 4 mg PRN Q8HRS PRN IV NAUSEA/VOMITING; Start 05/12/18 at 02:15; Stop 05/13/18 at 02:14; Status DC Fentanyl Citrate (Fentanyl 2ml Vial) 50 mcg PRN Q2HR PRN IV PAIN; Start at 02:15 Iohexol (Omnipaque 350 Mg/ml) 60 ml 1X ONCE IV Last administered on 05/12/18at 02:34; Start 05/12/18 at 02:30; Stop 05/12/18 at 02:31; Status DC Info (CONTRAST GIVEN -- Rx MONITORING) 1 each PRN DAILY PRN MC SEE COMMENTS; Start 05/12/18 at 02:30; Stop 05/14/18 at 02:29 Ceftriaxone Sodium (Rocephin) 1 gm 1X ONCE IVP Last administered on 05/12/18at 02:53; Start 05/12/18 at 02:45; Stop 05/12/18 at 02:46; Status DC Aspirin (Celi Aspirin) 325 mg 1X ONCE PO Last administered on 05/12/18at 02:53 ; Start 05/12/18 at 02:45; Stop 05/12/18 at 02:46; Status DC Lisinopril (Prinivil) 40 mg DAILY PO Last administered on 05/12/18at 09:58; Start 05/12/18 at 09:30 Chlorthalidone (Thalitone) 25 mg DAILY PO ; Start 05/13/18 at 09:00 Sodium Chloride 1,000 ml @ 75 mls/hr 1X ONCE IV Last administered on at 10:58; Start 05/12/18 at 10:45; Stop 05/13/18 at 00:04; Status DC Albuterol/ Ipratropium (Duoneb) 3 ml RTQID NEB Last administered on 05/12/18at 19 :50; Start 05/12/18 at 12:00 Ceftriaxone Sodium (Rocephin) 1 gm Q24H IVP Last administered on 05/12/18at 21:30 ; Start 05/12/18 at 21:00 Iodixanol (Visipaque 320) 100 ml STK-MED ONCE .ROUTE ; Start 05/12/18 at 15:28; Stop 05/12/18 at 15:29; Status DC Lidocaine HCl (Xylocaine-Mpf 1% 2ml Vial) 2 ml STK-MED ONCE .ROUTE ; Start at 15:28; Stop 05/12/18 at 15:29; Status DC Heparin Sodium/ Sodium Chloride 1,000 ml @ As Directed STK-MED ONCE .ROUTE ; Start 05/12/18 at 15:28; Stop 05/12/18 at 15:29; Status DC Midazolam HCl (Versed) 2 mg STK-MED ONCE .ROUTE ; Start 05/12/18 at 15:41; Stop 05/12/18 at 15:42; Status DC Fentanyl Citrate (Fentanyl 2ml Vial) 100 mcg STK-MED ONCE .ROUTE ; Start at 15:41; Stop 05/12/18 at 15:42; Status DC Verapamil HCl (Verapamil) 5 mg STK-MED ONCE .ROUTE ; Start 05/12/18 at 15:41; Stop 05/12/18 at 15:42; Status DC Heparin Sodium (Porcine) (Heparin Sodium) 10,000 unit STK-MED ONCE .ROUTE ; Start 05/12/18 at 15:41; Stop 05/12/18 at 15:42; Status DC Nitroglycerin (Nitroglycerin) 200 mcg STK-MED ONCE .ROUTE ; Start 05/12/18 at 15: 41; Stop 05/12/18 at 15:42; Status DC Nitroglycerin (Nitroglycerin) 200 mcg 1X ONCE IART Last administered on 16:08; Start 05/12/18 at 16:00; Stop 05/12/18 at 16:03; Status DC Verapamil HCl (Verapamil) 2.5 mg 1X ONCE IART Last administered on 05/12/18 16 :09; Start 05/12/18 at 16:00; Stop 05/12/18 at 16:03; Status DC Heparin Sodium (Porcine) (Heparin Sodium) 2,500 unit 1X ONCE IART Last administered on 05/12/18at 16:10; Start 05/12/18 at 16:00; Stop 05/12/18 at 16:03; Status DC Heparin Sodium/ Sodium Chloride (HEPARIN for ARTERIAL LINE FLUSH) 1,000 unit 1X ONCE IART Last administered on 05/12/18 16:07; Start 05/12/18 at 16:00; Stop 05/12/18 at 16:03; Status DC Heparin Sodium/ Sodium Chloride (HEPARIN for ARTERIAL LINE FLUSH) 1,000 unit 1X ONCE IART Last administered on 05/12/18 16:08; Start 05/12/18 at 16:00; Stop 05/12/18 at 16:03; Status DC Midazolam HCl (Versed) 1 mg 1X ONCE IV Last administered on 05/12/18at 16:09; Start 05/12/18 at 16:00; Stop 05/12/18 at 16:03; Status DC Fentanyl Citrate (Fentanyl 2ml Vial) 50 mcg 1X ONCE IV Last administered on 05/12/18at 16:08; Start 05/12/18 at 16:00; Stop 05/12/18 at 16:03; Status DC Iodixanol (Visipaque 320) 65 ml 1X ONCE IART Last administered on 05/12/18at 16: 08; Start 05/12/18 at 16:00; Stop 05/12/18 at 16:03; Status DC Lidocaine HCl (Xylocaine-Mpf 1% 2ml Vial) 2 ml 1X ONCE INJ Last administered on 05/12/18at 16:09; Start 05/12/18 at 16:00; Stop 05/12/18 at 16:03; Status DC Info (CONTRAST GIVEN -- Rx MONITORING) 1 each PRN DAILY PRN MC SEE COMMENTS; Start 05/12/18 at 16:15; Stop 05/14/18 at 16:14 Sodium Chloride (Normal Saline Flush) 3 ml QSHIFT PRN IV AFTER MEDS AND BLOOD DRAWS; Start 05/12/18 at 16:15 Nitroglycerin (Nitrostat) 0.4 mg PRN Q5MIN PRN SL CHEST PAIN; Start 05/12/18 at 16:15 Acetaminophen (Tylenol) 650 mg PRN Q6HRS PRN PO HEADACHE Last administered on at 17:39; Start 05/12/18 at 17:15 Active Scripts Active Cyclobenzaprine Hcl 10 Mg Tablet 10 Mg PO PRN TID PRN Azithromycin Tablet (Azithromycin) 250 Mg Tablet 1 Pkg PO UD For pneumonia Take as directed Vitals/I & O Vital Sign - Last 24 Hours 05/12/18 05/12/18 05/12/18 05/12/18 08:00 08:00 09:58 12:00 Temp 98.6 98.0 98.6 98.0 Pulse 88 88 85 Resp 18 16 B/P (MAP) 140/97 (111) 140/97 104/70 (81) Pulse Ox 96 95 O2 Delivery Room Air Room Air Room Air 05/12/18 05/12/18 05/12/18 05/12/18 16:08 16:09 16:11 16:30 Pulse 68 68 78 Resp 12 11 16 B/P (MAP) 119/67 (84) Pulse Ox 100 100 100 O2 Delivery Nasal Cannula Nasal Cannula Room Air O2 Flow Rate 2.0 2.0 05/12/18 05/12/18 05/12/18 05/12/18 16:38 16:45 17:00 19:00 Temp 98.7 98.7 Pulse 76 80 82 Resp 16 18 14 15 B/P (MAP) 102/71 (81) 118/71 (87) 95/46 (62) Pulse Ox 96 98 92 O2 Delivery Room Air Room Air Room Air Room Air 05/12/18 05/12/18 05/12/18 05/12/18 19:37 20:00 20:12 22:23 Temp 98.0 98.1 98.0 98.1 Pulse 83 70 Resp 20 16 B/P (MAP) 110/64 (79) 101/71 (81) Pulse Ox 96 96 97 O2 Delivery Room Air Room Air Room Air Room Air 05/13/18 02:49 Temp 98.1 98.1 Pulse 74 Resp 18 B/P (MAP) 115/72 (86) Pulse Ox 96 O2 Delivery Room Air Intake and Output 05/12/18 05/12/18 05/13/18 14:59 22:59 06:59 Intake Total 700 ml 1200 ml Output Total 250 ml Balance -250 ml 700 ml 1200 ml CAMILLE MARIE MD May 13, 2018 07:28
[2018-05-13] MEDS: ACETAMINOPHEN 325 MG TABLET. PO PRN (07:43)
[2018-05-13] MEDS: IPRATRPIUM/ALBUTEROL 0.5/2.5MG 3 ML NEBU. NEB SCH ×2 (07:55→11:17)
[2018-05-13] MEDS ORDERED: CHLORTHALIDONE 25 MG TABLET. PO SCH (09:00)
[2018-05-13] MEDS: LISINOPRIL 20 MG TABLET PO SCH (09:38)
[2018-05-13 11:00] VITALS: BP 128/64
[2018-05-13] MEDS ORDERED: CHLO25TA10 PO (12:47)
[2018-05-13] MEDS ORDERED: LISI-130 PO (12:47)
[2018-05-13] MEDS ORDERED: LACT1CAP19 PO (12:47)
--- NOTE | 2018-05-13 12:55 | PDOC3 ---
Discharge Summary Visit Information Date of Admission: May 12, 2018 Date of Discharge: May 13, 2018 Admitting Diagnosis: Bronchitis, chest pain Final Diagnosis Problems Medical Problems: (1) Chest pain Status: Acute (2) Urinary tract infection Status: Acute Brief Hospital Course Allergies Allergies Coded Allergies Type Severity Reaction Last Updated Verified No Known Drug Allergies 06/03/16 No Vital Signs Vital Signs Date Time Temp Pulse Resp B/P (MAP) Pulse Ox O2 Delivery O2 Flow Rate FiO2 05/13/18 11:18 93 Room Air 05/13/18 09:38 74 115/72 05/13/18 07:00 98.3 16 98.3 05/12/18 16:11 2.0 Lab Results Laboratory Tests Test 05/12/18 00:40 05/12/18 00:46 05/12/18 00:55 05/12/18 05:15 Urine Collection Type Unknown Urine Color Yellow Urine Clarity Clear Urine pH 5.0 Urine Specific [place] 1.025 Urine Protein Negative mg/dL (NEG-TRACE) Urine Glucose (UA) Negative mg/dL (NEG) Urine Ketones (Stick) Negative mg/dL (NEG) Urine Blood Small (NEG) Urine Nitrite Negative (NEG) Urine Bilirubin Negative (NEG) Urine Urobilinogen Dipstick 0.2 mg/dL (0.2 mg/dL) Urine Leukocyte Esterase Moderate (NEG) Urine RBC Occ /HPF (0-2) Urine WBC 11-20 /HPF (0-4) Urine Squamous Epithelial Cells Mod /LPF Urine Bacteria Moderate /HPF (0-FEW) Urine Mucus Mod /LPF Bedside Urine HCG, Qualitative Hcg negative (Negative) White Blood Count 7.8 x10^3/uL (4.0-11.0) Red Blood Count 5.11 x10^6/uL (3.50-5.40) Hemoglobin 14.7 g/dL (12.0-15.5) Hematocrit 43.8 % (36.0-47.0) Mean Corpuscular Volume 86 fL (79-100) Mean Corpuscular Hemoglobin 29 pg (25-35) Mean Corpuscular Hemoglobin Concent 34 g/dL (31-37) Red Cell Distribution Width 13.5 % (11.5-14.5) Platelet Count 201 x10^3/uL (140-400) Neutrophils (%) (Auto) 61 % (31-73) Lymphocytes (%) (Auto) 24 % (24-48) Monocytes (%) (Auto) 10 % (0-9) Eosinophils (%) (Auto) 4 % (0-3) Basophils (%) (Auto) 1 % (0-3) Neutrophils # (Auto) 4.8 x10^3uL (1.8-7.7) Lymphocytes # (Auto) 1.9 x10^3/uL (1.0-4.8) Monocytes # (Auto) 0.8 x10^3/uL (0.0-1.1) Eosinophils # (Auto) 0.3 x10^3/uL (0.0-0.7) Basophils # (Auto) 0.1 x10^3/uL (0.0-0.2) Prothrombin Time 12.7 SEC (11.7-14.0) Prothromb Time International Ratio 1.0 (0.8-1.1) Sodium Level 142 mmol/L (136-145) Potassium Level 3.7 mmol/L (3.5-5.1) Chloride Level 104 mmol/L (98-107) Carbon Dioxide Level 28 mmol/L (21-32) Anion Gap 10 (6-14) Blood Urea Nitrogen 16 mg/dL (7-20) Creatinine 1.0 mg/dL (0.6-1.0) Estimated GFR (Cockcroft-Gault) 57.8 BUN/Creatinine Ratio 16 (6-20) Glucose Level 189 mg/dL (70-99) Hemoglobin A1c 6.2 % (4.8-5.6) Lactic Acid Level 1.1 mmol/L (0.4-2.0) Calcium Level 9.4 mg/dL (8.5-10.1) Magnesium Level 1.9 mg/dL (1.8-2.4) Total Bilirubin 0.4 mg/dL (0.2-1.0) Aspartate Amino Transf (AST/SGOT) 16 U/L (15-37) Alanine Aminotransferase (ALT/SGPT) 20 U/L (14-59) Alkaline Phosphatase 90 U/L (46-116) Creatine Kinase 68 U/L (26-192) Creatine Kinase MB (Mass) 0.7 ng/mL (0.0-3.6) Creatine Kinase MB Relative Index % (0-4) Troponin I Quantitative < 0.017 ng/mL (0.000-0.055) < 0.017 ng/mL (0.000-0.055) VI-Bsc-B-Type Natriuretic Peptide 33 pg/mL (0-124) Total Protein 7.7 g/dL (6.4-8.2) Albumin 3.7 g/dL (3.4-5.0) Albumin/Globulin Ratio 0.9 (1.0-1.7) Lipase 160 U/L (73-393) Triglycerides Level 101 mg/dL (0-150) Cholesterol Level 140 mg/dL (0-200) LDL Cholesterol, Calculated 85 mg/dL (0-100) VLDL Cholesterol, Calculated 20 mg/dL (0-40) Non-HDL Cholesterol Calculated 105 mg/dL (0-129) HDL Cholesterol 35 mg/dL (40-60) Cholesterol/HDL Ratio 4.0 Thyroid Stimulating Hormone (TSH) 2.767 uIU/mL (0.358-3.74) Test 05/12/18 08:20 Troponin I Quantitative < 0.017 ng/mL (0.000-0.055) Brief Hospital Course 52 yo female admitted for complains of chest pain. Reports of high BP lately and has been taking lisinopril and actually saw her PCP and was given Rx for BB and cholesterol meds but has not filled yet. Reports that in the last 3 days she has been having fever episode with temp at times at 102 and also x1 cough out an chink of bright red blood the other day. Reports that she has been coughing, nasal congestion, no heartburn. She has been taking thera flu both daytime and nighttime. Her BP has been high running sometimes at 180s/118. 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 She has been having chest pressure with activity and also MCCLURE even before her respiratory symptoms which she thought she had the flu. Reports that it felt like there is fullness and like pressure mid chest but no jaw or arm discomfort. Sometimes she feels like she is having palpitations. No nausea or vomiting. She has COPD but has not been using her albuterol inhalers and no maintenance inhalers. She was DM2 in the past but changed her diet and lost wt and has been off metformin. No known CAD, VTE, arrhythmias. No known previous cardiac testing. She underwent negative CTPA that showed bronchitis, treated with rocephin and azithromycin IV as she had some vomiting. She had elevated troponin and elevated BP and due to this and her chest pressure she went for urgent cardiac cath: 1. Normal left sided filling pressures. 2. Normal LV systolic function. EF 55% 3. No significant coronary disease. She felt improved with addition of chlorthalidone and lisinopril. Discharged on these. Greater than 30 minutes spent on discharge including counseling on methamphetamine abstinence. Chest pain: UA features. subtle septal changes. Trop normal so far. AECOPD/URI/fever: no fever so far as an inpt and no maintenance coverage for COPD at home. Defer to PCP Hemoptysis: x1. Hgb stable. unclear etiology. cough and uncontrolled HTN likely contributing Accelerated HTN: better. contributing inadequate coverage and also recent decongestant use Hx of DM2: off metformin with wt loss and diet changes. Likely not resolved FBG 189. A1c 6.2, meets criteria for prediabetes now HLP: new. Rx not started yet CAD: incidental finding coronary calcifications per CT Discharge Information Condition at Discharge: Improved Follow Up: Weeks (2) Disposition/Orders: D/C to Home Scheduled Azithromycin (Azithromycin Tablet) 250 Mg Tablet, 1 PKG PO UD, #6 For pneumonia Take as directed Prescribed by: JESSY CASTELLANO MD on 06/03/16 0716 Chlorthalidone (Chlorthalidone ) 25 Mg Tablet, 25 MG PO DAILY for HTN for 30 Days, #30 Ref 2 Prescribed by: CAMILLE MARIE MD on 05/13/18 1247 Lactobacillus Rhamnosus Gg (Culturelle) 1 Each Cap.sprink, 1 CAP PO BID for diarrhea for 7 Days, #14 Prescribed by: CAMILLE MARIE MD on 05/13/18 1247 Lisinopril (Lisinopril) 40 Mg Tablet, 40 MG PO DAILY for HTN for 30 Days, #30 Ref 2 Prescribed by: CAMILLE MARIE MD on 05/13/18 1247 Scheduled PRN Cyclobenzaprine Hcl (Cyclobenzaprine Hcl) 10 Mg Tablet, 10 MG PO PRN TID PRN for PAIN, #12 Prescribed by: MARY JANE SCOTT D.O. on 01/13/172127 CAMILLE MARIE MD May 13, 2018 12:55
--- NOTE | 2018-05-13 13:54 | NUR ---
Discharge Note: BIGG MONSALVE Discharge instructions and discharge home medications reviewed with Patient and a copy given. All questions have been answered and understanding verbalized. The following instructions and handouts were given: Worsening symptoms, medications, activity, and follow up information. Discontinued lines and drains: IV discontinued and skin intact. Patient discharged to home with self care via private transportation.
[2018-05-13] MEDS ORDERED: LACTOBACILLUS RHAMNOSUS GG 1 CAPSULE. PO SCH (21:00)
== END 2018-05-13 13:45 | disposition home or self-care (01) | DRG 287 ==
LOC: ER 00:38 → 1 WEST ICU 02:05 → 2 NORTH 20:00
PROVIDERS: ADMIT Internal Medicine; ATTEND Internal Medicine
PROC: 4A023N7 Measurement of Cardiac Sampling and Pressure, Left Heart, Percutaneous Approach (ICD-10-PCS; principal; 2018-05-12)
PROC: B2151ZZ Fluoroscopy of Left Heart using Low Osmolar Contrast (ICD-10-PCS; 2018-05-12)
PROC: B2111ZZ Fluoroscopy of Multiple Coronary Arteries using Low Osmolar Contrast (ICD-10-PCS; 2018-05-12)
DX: I25.110 Atherosclerotic heart disease of native coronary artery with unstable angina pectoris (principal); J44.1 Chronic obstructive pulmonary disease with (acute) exacerbation; N39.0 Urinary tract infection, site not specified; R04.2 Hemoptysis; J40 Bronchitis, not specified as acute or chronic; E11.9 Type 2 diabetes mellitus without complications; I10 Essential (primary) hypertension; M19.90 Unspecified osteoarthritis, unspecified site; E78.5 Hyperlipidemia, unspecified; F17.210 Nicotine dependence, cigarettes, uncomplicated; Z78.0 Asymptomatic menopausal state; Z82.49 Family history of ischemic heart disease and other diseases of the circulatory system; Z79.899 Other long term (current) drug therapy; Z71.6 Tobacco abuse counseling
CPT/HCPCS: 36415; 71275; 80053; 80061; 81001; 81025; 82553; 83036; 83605; 83690; 83735; 83880; 84443; 84484; 85025; 85610; 87086; 93005; 93306; 93458; 94640; 94760; 96374; 99152; C1769; C1892; J0696; J1644; J2250; J3010; J3490; J7030; J7620; Q9967; 99285-25

== ENCOUNTER 2018-09-22 23:34 | Emergency (ER) | payer BC ==
[~2018-09-22] VITALS: Ht 167.6 cm; Wt 76.7 kg
[~2018-09-22 23:34] MED LIST changes: +CHLO25TA10 PO; +LACT1CAP19 PO; +LISI-130 PO
[2018-09-23 00:33] LABS: BILIRUBIN,URINE NEGATIVE (NEG); CLARITY,URINE CLEAR; COLOR,URINE YELLOW; NITRITE,URINE NEGATIVE (NEG); PH,URINE 5.5; PROTEIN,URINE NEGATIVE (NEG-TRACE); UROBILINOGEN,URINE 0.2 mg/dL (0.2 mg/dL)
[2018-09-23 00:45] LABS: BACTERIA,URINE FEW /HPF (0-FEW); HYALINE CASTS, URINE FEW /HPF; RBC,URINE 0 /HPF (0-2); SQUAMOUS EPITHELIAL CELL,UR MOD /LPF
--- NOTE | 2018-09-23 00:48 | PHYS DOC ---
Past Medical History Past Medical History: Diabetes-Type II, Hypertension Additional Past Medical Histor: PANIC ATTACKS Past Surgical History: No Surgical History Additional Past Surgical Histo: PARACENTESIS Alcohol Use: Occasionally Drug Use: None Adult General Chief Complaint Chief Complaint: FLANK PAIN HPI HPI Patient is a 53 year old sore throat for 3 days, left-sided abdominal pain for 2 days. Patient denies any fever, no frequent urination. Patient denies any vomiting. The pain get worse and I so she came in here for evaluation. Patient denies any back pain, no recent operation or injury. She denies any chest pain, no trouble breathing. Review of Systems Review of Systems Constitutional: Denies fever or chills [] Eyes: Denies change in visual acuity, redness, or eye pain [] HENT: Denies nasal congestion, POSITIVE FOR SORE throat [] Respiratory: Denies cough or shortness of breath [] Cardiovascular: No additional information not addressed in HPI [] GI: Positive for abdominal pain, nausea, NO vomiting, bloody stools or diarrhea [] : Denies dysuria or hematuria [] Musculoskeletal: Denies back pain or joint pain [] Integument: Denies rash or skin lesions [] Neurologic: Denies headache, focal weakness or sensory changes [] Endocrine: Denies polyuria or polydipsia [] All other systems were reviewed and found to be within normal limits, except as documented in this note. Current Medications Current Medications Current Medications Medications (Trade) Dose Ordered Sig/Jude Start Time Stop Time Status Last Admin Dose Admin Ketorolac Tromethamine (Toradol 30mg Vial) 30 mg 1X ONCE 09/23/18 02:00 09/23/18 02:01 DC 09/23/18 01:41 30 MG Allergies Allergies Allergies Coded Allergies Type Severity Reaction Last Updated Verified No Known Drug Allergies 06/03/16 No Physical Exam Physical Exam Constitutional: Well developed, well nourished, no acute distress, non-toxic appearance. [] HENT: Normocephalic, atraumatic, bilateral external ears normal, oropharynx IS ERYTHEMATOUS, no oral exudates, nose normal. [] Eyes: PERRLA, EOMI, conjunctiva normal, no discharge. [] Neck: Normal range of motion, no tenderness, supple, no stridor. [] Cardiovascular:Heart rate regular rhythm, no murmur [] Lungs & Thorax: Bilateral breath sounds clear to auscultation [] Abdomen: Bowel sounds normal, soft, There is tenderness to palpation in LEFT CVA AND LLQ, no masses, no pulsatile masses. [] Skin: Warm, dry, no erythema, no rash. [] Back: No tenderness, no CVA tenderness. [] Extremities: No tenderness, no cyanosis, no clubbing, ROM intact, no edema. [] Neurologic: Alert and oriented X 3, normal motor function, normal sensory function, no focal deficits noted. [] Psychologic: Affect normal, judgement normal, mood normal. [] Current Patient Data Vital Signs Vital Signs Date Time Temp Pulse Resp B/P (MAP) Pulse Ox O2 Delivery O2 Flow Rate FiO2 09/23/18 00:05 97.7 95 20 118/70 (86) 97 Room Air 97.7 Lab Values Laboratory Tests Test 09/23/18 00:21 09/23/18 00:45 Urine Collection Type Unknown Urine Color Yellow Urine Clarity Clear Urine pH 5.5 Urine Specific [place] 1.020 Urine Protein Negative mg/dL (NEG-TRACE) Urine Glucose (UA) Negative mg/dL (NEG) Urine Ketones (Stick) Negative mg/dL (NEG) Urine Blood Negative (NEG) Urine Nitrite Negative (NEG) Urine Bilirubin Negative (NEG) Urine Urobilinogen Dipstick 0.2 mg/dL (0.2 mg/dL) Urine Leukocyte Esterase Trace (NEG) Urine RBC 0 /HPF (0-2) Urine WBC 1-4 /HPF (0-4) Urine Squamous Epithelial Cells Mod /LPF Urine Bacteria Few /HPF (0-FEW) Urine Hyaline Casts Few /HPF Urine Mucus Mod /LPF White Blood Count 11.0 x10^3/uL (4.0-11.0) Red Blood Count 4.71 x10^6/uL (3.50-5.40) Hemoglobin 14.1 g/dL (12.0-15.5) Hematocrit 40.3 % (36.0-47.0) Mean Corpuscular Volume 86 fL (79-100) Mean Corpuscular Hemoglobin 30 pg (25-35) Mean Corpuscular Hemoglobin Concent 35 g/dL (31-37) Red Cell Distribution Width 13.1 % (11.5-14.5) Platelet Count 221 x10^3/uL (140-400) Neutrophils (%) (Auto) 58 % (31-73) Lymphocytes (%) (Auto) 30 % (24-48) Monocytes (%) (Auto) 8 % (0-9) Eosinophils (%) (Auto) 3 % (0-3) Basophils (%) (Auto) 2 % (0-3) Neutrophils # (Auto) 6.4 x10^3/uL (1.8-7.7) Lymphocytes # (Auto) 3.3 x10^3/uL (1.0-4.8) Monocytes # (Auto) 0.9 x10^3/uL (0.0-1.1) Eosinophils # (Auto) 0.3 x10^3/uL (0.0-0.7) Basophils # (Auto) 0.2 x10^3/uL (0.0-0.2) Sodium Level 139 mmol/L (136-145) Potassium Level 3.4 mmol/L (3.5-5.1) L Chloride Level 102 mmol/L (98-107) Carbon Dioxide Level 24 mmol/L (21-32) Anion Gap 13 (6-14) Blood Urea Nitrogen 30 mg/dL (7-20) H Creatinine 1.0 mg/dL (0.6-1.0) Estimated GFR (Cockcroft-Gault) 57.6 BUN/Creatinine Ratio 30 (6-20) H Glucose Level 130 mg/dL (70-99) H Calcium Level 9.2 mg/dL (8.5-10.1) Total Bilirubin 0.5 mg/dL (0.2-1.0) Aspartate Amino Transferase (AST) 30 U/L (15-37) Alanine Aminotransferase (ALT) 33 U/L (14-59) Alkaline Phosphatase 96 U/L (46-116) Total Protein 7.7 g/dL (6.4-8.2) Albumin 3.9 g/dL (3.4-5.0) Albumin/Globulin Ratio 1.0 (1.0-1.7) Lipase 117 U/L (73-393) Laboratory Tests 09/23/18 00:45 Laboratory Tests 09/23/18 00:45 EKG EKG [] Radiology/Procedures Radiology/Procedures [][facility] [address] [place] [address] IMAGING REPORT Signed PATIENT: BIGG MONSALVE ACCOUNT: [id number] : 1965 LOCATION: ER AGE: 53 SEX: F EXAM STATUS: REG ER ORD. PHYSICIAN: LUBNA ENGLISH DO REASON: LEFT FLANK PAIN PROCEDURE: CT ABDOMEN PELVIS WO CONTRAST CT scan of the abdomen and pelvis without contrast 09/23/2018 CLINICAL HISTORY: Left flank pain. TECHNIQUE: Unenhanced, contiguous, 2 mm axial sections were obtained through the abdomen and pelvis. One or more of the following individualized dose reduction techniques were utilized for this study: 1. Automated exposure control. 2. Adjustment of the mA and/or kV according to patient size. 3. Use of iterative reconstruction technique. FINDINGS: Images through the lung bases demonstrate minimal dependent subsegmental atelectasis bilaterally. The liver, spleen, pancreas, and adrenal glands are within normal limits. No renal or ureteral calculus is seen. There is no evidence of obstruction of either collecting system. The gallbladder is contracted. Atherosclerotic calcification of the abdominal aorta is seen. The abdominal aorta tapers normally. No free fluid or free air is seen within the abdomen. There is no evidence of bowel obstruction. Air and stool is seen throughout the colon. The appendix is well-visualized and is within normal limits. Images through the pelvis demonstrate the urinary bladder distended with urine. No distal ureteral calculus is seen. Calcifications are seen within the pelvis consistent with phleboliths. No adnexal mass is noted. No free fluid is seen. Very mild S-shaped curvature of the thoracolumbar spine is noted. IMPRESSION: No acute abnormality is seen. Electronically signed by: Mendez Herrera MD (09/23/2018 2:03 AM) [facility] DICTATED and SIGNED BY: MENDEZ HERRERA MD DATE: 09/23/18202 Course & Med Decision Making Course & Med Decision Making Pertinent Labs and Imaging studies reviewed. (See chart for details) [] Dragon Disclaimer Dragon Disclaimer This electronic medical record was generated, in whole or in part, using a voice recognition dictation system. Departure Departure Impression: Primary Impression: Abdominal pain Additional Impression: Pharyngitis Disposition: HOME, SELF-CARE Condition: STABLE Referrals: UNKNOWN PCP NAME (PCP) FOLLOW UP WITH YOUR PCP Patient Instructions: Abdominal Pain, Viral and Bacterial Pharyngitis Scripts Amoxicillin (AMOXICILLIN) 500 Mg Capsule 500 MG PO TID for 10 Days, #30 CAP 0 Refills Prov: LUBNA ENGLISH DO 09/23/18 Problem Qualifiers LUBNA ENGLISH DO Sep 23, 2018 00:48
[2018-09-23 00:51] LABS: BASO # 0.2 x10^3/uL (0.0-0.2); BASO % 2 % (0-3); EOS # 0.3 x10^3/uL (0.0-0.7); EOS % 3 % (0-3); HEMATOCRIT 40.3 % (36.0-47.0); HEMOGLOBIN 14.1 g/dL (12.0-15.5); LYMPH # 3.3 x10^3/uL (1.0-4.8); LYMPH % 30 % (24-48); MEAN CORPUSCULAR HEMOGLOBIN 30 pg (25-35); MEAN CORPUSCULAR HGB CONC 35 g/dL (31-37); MEAN CORPUSCULAR VOLUME 86 fL (79-100); MONO # 0.9 x10^3/uL (0.0-1.1); MONO % 8 % (0-9); NEUT # 6.4 x10^3/uL (1.8-7.7); NEUT % 58 % (31-73); PLATELET COUNT 221 x10^3/uL (140-400); RED BLOOD COUNT 4.71 x10^6/uL (3.50-5.40); RED CELL DISTRIBUTION WIDTH 13.1 % (11.5-14.5)
[2018-09-23 01:04] LABS: CALCIUM 9.2 mg/dL (8.5-10.1); GFR 57.6; POTASSIUM 3.4 mmol/L (3.5-5.1)
[2018-09-23 01:11] LABS: ALBUMIN 3.9 g/dL (3.4-5.0); TOTAL BILIRUBIN 0.5 mg/dL (0.2-1.0); TOTAL PROTEIN 7.7 g/dL (6.4-8.2)
[2018-09-23] MEDS ORDERED: KETOROLAC 30 MG/ML VIAL. IV ONE (02:00)
--- NOTE | 2018-09-23 02:06 | RAD ---
CT scan of the abdomen and pelvis without contrast 09/23/2018 CLINICAL HISTORY: Left flank pain. TECHNIQUE: Unenhanced, contiguous, 2 mm axial sections were obtained through the abdomen and pelvis. One or more of the following individualized dose reduction techniques were utilized for this study: 1. Automated exposure control. 2. Adjustment of the mA and/or kV according to patient size. 3. Use of iterative reconstruction technique. FINDINGS: Images through the lung bases demonstrate minimal dependent subsegmental atelectasis bilaterally. The liver, spleen, pancreas, and adrenal glands are within normal limits. No renal or ureteral calculus is seen. There is no evidence of obstruction of either collecting system. The gallbladder is contracted. Atherosclerotic calcification of the abdominal aorta is seen. The abdominal aorta tapers normally. No free fluid or free air is seen within the abdomen. There is no evidence of bowel obstruction. Air and stool is seen throughout the colon. The appendix is well-visualized and is within normal limits. Images through the pelvis demonstrate the urinary bladder distended with urine. No distal ureteral calculus is seen. Calcifications are seen within the pelvis consistent with phleboliths. No adnexal mass is noted. No free fluid is seen. Very mild S-shaped curvature of the thoracolumbar spine is noted. IMPRESSION: No acute abnormality is seen. Electronically signed by: Mendez Jovel MD (09/23/2018 2:03 AM) [facility]
[2018-09-23] MEDS ORDERED: AMOX500C PO (02:13)
[2018-09-23 02:23] VITALS: BP 102/58
--- NOTE | 2018-09-23 09:29 | EKG ---
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
== END 2018-09-23 02:28 | disposition home or self-care (01) ==
LOC: ER 23:34
DX: R10.32 Left lower quadrant pain (principal); J02.9 Acute pharyngitis, unspecified; E11.9 Type 2 diabetes mellitus without complications; I10 Essential (primary) hypertension
CPT/HCPCS: 36415; 74176; 80053; 81001; 83690; 85025; 87086; 93005; 96374; 99285; J1885

== ENCOUNTER 2019-03-04 23:05 | Emergency (ER) | payer BC ==
[~2019-03-04] VITALS: Ht 165.1 cm; Wt 79.8 kg
[~2019-03-04 23:05] MED LIST changes: +AMOX500C PO
[2019-03-04] MEDS ORDERED: IV NORMAL SALINE 1000ML BAG 1,000 ML IV ONE (23:30)
--- NOTE | 2019-03-04 23:30 | PHYS DOC ---
Past Medical History Past Medical History: Diabetes-Type II, Hypertension Additional Past Medical Histor: PANIC ATTACKS Past Surgical History: No Surgical History Additional Past Surgical Histo: PARACENTESIS Alcohol Use: Occasionally Drug Use: None Adult General Chief Complaint Chief Complaint: SHORTNESS OF BREATH HPI HPI 53-year-old female presents to the emergency department with complaints of shortness of breath, cough. Patient was seen approximately 2 weeks ago at urgent care the symptoms have progressively gotten worse. She describes intermittent chills. She denies receiving her flu shot. Cough is somewhat productive. She describes intermittent nausea as well. Body aches. Nothing makes her symptoms worse, nothing makes her symptoms better. Review of Systems Review of Systems Constitutional: chills/clammy at times HENT: + nasal congestion Respiratory: Cough/SOB Cardiovascular: No additional information not addressed in HPI [] GI: Denies abdominal pain, intermitten nausea, no vomiting, no bloody stools or diarrhea [] Musculoskeletal: Denies back pain or joint pain [] Neurologic: Denies headache, focal weakness or sensory changes [] All other systems were reviewed and found to be within normal limits, except as documented in this note. Current Medications Current Medications Current Medications Medications (Trade) Dose Ordered Sig/Jude Start Time Stop Time Status Last Admin Dose Admin Sodium Chloride 1,000 ml @ 1,000 mls/hr 1X ONCE 03/04/19 23:30 03/05/19 00:29 DC 03/04/19 23:48 1,000 MLS/HR Allergies Allergies Allergies Coded Allergies Type Severity Reaction Last Updated Verified No Known Drug Allergies 06/03/16 No Physical Exam Physical Exam Constitutional: Well developed, well nourished, no acute distress, non-toxic appearance. [] HENT: Normocephalic, atraumatic, bilateral external ears normal, oropharynx moist, no oral exudates, nose normal. [] Eyes: PERRLA, EOMI, conjunctiva normal, no discharge. [] Neck: Normal range of motion, no tenderness, supple, no stridor. [] Cardiovascular:Heart rate regular rhythm, no murmur [] Lungs & Thorax: decreased bs Abdomen: Bowel sounds normal, soft, no tenderness, no masses, no pulsatile masses. [] Skin: Warm, dry, no erythema, no rash. [] Back: No tenderness, no CVA tenderness. [] Extremities: No tenderness, no edema. [] Neurologic: Alert and oriented X 3,no focal deficits noted. [] Psychologic: Affect normal, judgement normal, mood normal. [] Current Patient Data Vital Signs Vital Signs Date Time Temp Pulse Resp B/P (MAP) Pulse Ox O2 Delivery O2 Flow Rate FiO2 03/04/19 23:16 98.1 95 18 147/85 (105) 98 Room Air 98.1 Lab Values Laboratory Tests Test 03/04/19 23:45 White Blood Count 11.0 x10^3/uL (4.0-11.0) Red Blood Count 4.41 x10^6/uL (3.50-5.40) Hemoglobin 12.7 g/dL (12.0-15.5) Hematocrit 37.3 % (36.0-47.0) Mean Corpuscular Volume 85 fL (79-100) Mean Corpuscular Hemoglobin 29 pg (25-35) Mean Corpuscular Hemoglobin Concent 34 g/dL (31-37) Red Cell Distribution Width 13.7 % (11.5-14.5) Platelet Count 263 x10^3/uL (140-400) Neutrophils (%) (Auto) 66 % (31-73) Lymphocytes (%) (Auto) 22 % (24-48) L Monocytes (%) (Auto) 8 % (0-9) Eosinophils (%) (Auto) 3 % (0-3) Basophils (%) (Auto) 1 % (0-3) Neutrophils # (Auto) 7.3 x10^3/uL (1.8-7.7) Lymphocytes # (Auto) 2.4 x10^3/uL (1.0-4.8) Monocytes # (Auto) 0.9 x10^3/uL (0.0-1.1) Eosinophils # (Auto) 0.3 x10^3/uL (0.0-0.7) Basophils # (Auto) 0.1 x10^3/uL (0.0-0.2) Sodium Level 137 mmol/L (136-145) Potassium Level 3.7 mmol/L (3.5-5.1) Chloride Level 103 mmol/L (98-107) Carbon Dioxide Level 28 mmol/L (21-32) Anion Gap 6 (6-14) Blood Urea Nitrogen 20 mg/dL (7-20) Creatinine 1.0 mg/dL (0.6-1.0) Estimated GFR (Cockcroft-Gault) 57.6 BUN/Creatinine Ratio 20 (6-20) Glucose Level 174 mg/dL (70-99) H Calcium Level 9.1 mg/dL (8.5-10.1) Total Bilirubin 0.3 mg/dL (0.2-1.0) Aspartate Amino Transferase (AST) 17 U/L (15-37) Alanine Aminotransferase (ALT) 17 U/L (14-59) Alkaline Phosphatase 113 U/L (46-116) Troponin I Quantitative < 0.017 ng/mL (0.000-0.055) FB-Qig-J-Type Natriuretic Peptide 66 pg/mL (0-124) Total Protein 7.4 g/dL (6.4-8.2) Albumin 2.7 g/dL (3.4-5.0) L Albumin/Globulin Ratio 0.6 (1.0-1.7) L Influenza Type A Antigen Negative (NEGATIVE) Influenza Type B Antigen Negative (NEGATIVE) Laboratory Tests 03/04/19 23:45 Laboratory Tests 03/04/19 23:45 EKG EKG []EKG reviewed, normal sinus rhythm, heart rate 95, normal axis no evidence of ST elevation [place] Radiology/Procedures Radiology/Procedures [] Course & Med Decision Making Course & Med Decision Making Pertinent Labs and Imaging studies reviewed. (See chart for details) []53-year-old female presents to the emergency department with complaints of shortness of breath, cough. Patient was seen approximately 2 weeks ago at urgent care the symptoms have progressively gotten worse. She describes intermittent chills. She denies receiving her flu shot. Cough is somewhat productive. She describes intermittent nausea as well. Body aches. Nothing makes her symptoms worse, nothing makes her symptoms better. Laboratory values reviewed, influenza negative, troponin negative, BNP within normal limits, chest x-ray reveals hazy area to the lungs bilaterally in lower lobes would recommend by mouth antibiotic therapy at this time given her symptoms. Discussed findings with patient and family at bedside. Return Precautions provided Dragon Disclaimer Dragon Disclaimer This electronic medical record was generated, in whole or in part, using a voice recognition dictation system. Departure Departure Impression: Primary Impression: Bronchitis Disposition: 01 HOME, SELF-CARE Condition: STABLE Referrals: UNKNOWN PCP NAME (PCP) Patient Instructions: Bronchitis Additional Instructions: Recommend follow up with PCP 3 - 5 days Return to the ER with worsening symptoms, intractable pain, fever, altered mental status Tylenol/Motrin as needed for pain Take antibiotics as directed Scripts Methylprednisolone (MEDROL) 4 Mg Tab.ds.pk 1 PKG PO UD for inflammation, #1 PKG Prov: LAVERN ZARAGOZA MD 03/05/19 Doxycycline Hyclate (DOXYCYCLINE HYCLATE) 100 Mg Capsule 1 CAP PO BID, #20 CAP Prov: LAVERN ZARAGOZA MD 03/05/19 LAVERN ZARAGOZA MD Mar 04, 2019 23:30
[2019-03-04 23:54] LABS: BASO # 0.1 x10^3/uL (0.0-0.2); BASO % 1 % (0-3); EOS # 0.3 x10^3/uL (0.0-0.7); EOS % 3 % (0-3); HEMATOCRIT 37.3 % (36.0-47.0); HEMOGLOBIN 12.7 g/dL (12.0-15.5); LYMPH # 2.4 x10^3/uL (1.0-4.8); LYMPH % 22 % (24-48); MEAN CORPUSCULAR HEMOGLOBIN 29 pg (25-35); MEAN CORPUSCULAR HGB CONC 34 g/dL (31-37); MEAN CORPUSCULAR VOLUME 85 fL (79-100); MONO # 0.9 x10^3/uL (0.0-1.1); MONO % 8 % (0-9); NEUT # 7.3 x10^3/uL (1.8-7.7); NEUT % 66 % (31-73); PLATELET COUNT 263 x10^3/uL (140-400); RED BLOOD COUNT 4.41 x10^6/uL (3.50-5.40); RED CELL DISTRIBUTION WIDTH 13.7 % (11.5-14.5)
[2019-03-05 00:01] LABS: CALCIUM 9.1 mg/dL (8.5-10.1); GFR 57.6; POTASSIUM 3.7 mmol/L (3.5-5.1)
[2019-03-05 00:07] LABS: ALBUMIN 2.7 g/dL (3.4-5.0); ALBUMIN/GLOBULIN RATIO 0.6 (1.0-1.7); TOTAL BILIRUBIN 0.3 mg/dL (0.2-1.0); TOTAL PROTEIN 7.4 g/dL (6.4-8.2)
[2019-03-05 00:10] LABS: INFLUENZA A PATIENT NEGATIVE (NEGATIVE); INFLUENZA B PATIENT NEGATIVE (NEGATIVE)
[2019-03-05 00:45] VITALS: BP 116/80
[2019-03-05] MEDS ORDERED: METH4TAB2 PO (01:16)
[2019-03-05] MEDS ORDERED: DOXY100C2 PO (01:16)
--- NOTE | 2019-03-05 07:25 | RAD ---
AP chest. HISTORY: Cough, short of breath AP view was taken of the chest. There is a left upper lobe apical infiltrate which is new compared to old studies. Heart is normal in size. There is no pleural effusion. There is a granuloma on the left. IMPRESSION: 1. Left upper lobe infiltrate. Electronically signed by: Anival Ballesteros MD (03/05/2019 7:22 AM) [facility]
--- NOTE | 2019-03-06 09:40 | EKG ---
[facility] [address] [place] [address] Test Date: 2019-03-04 Test Time: 23:16:45 Pat Name: BIGG MONSALVE Department: Room: Gender: F [employer]: : 1965 Requested By: LAVERN ZARAGOZA Order Number: [id number] Reading MD: Measurements Intervals [place] Rate: 94 P: 59 [place]: 134 QRS: 67 QRSD: 82 T: 59 QT: 340 QTc: 430 Interpretive Statements SINUS RHYTHM NORMAL ECG No previous ECG available for comparison
== END 2019-03-05 01:28 | disposition home or self-care (01) ==
LOC: ER 23:05
DX: J40 Bronchitis, not specified as acute or chronic (principal); R09.81 Nasal congestion; E11.9 Type 2 diabetes mellitus without complications; I10 Essential (primary) hypertension; Z98.890 Other specified postprocedural states
CPT/HCPCS: 36415; 71045; 80053; 83880; 84484; 85025; 87804; 93005; 99285; J7030

== ENCOUNTER 2020-04-20 15:59 | Emergency (ER) | payer BC ==
[~2020-04-20] VITALS: Ht 165.1 cm; Wt 80.0 kg
[~2020-04-20 15:59] MED LIST changes: +DOXY100C2 PO; +METH4TAB2 PO
[2020-04-20 16:50] LABS: BASO % 1 % (0-3); EOS % 0 % (0-3); HEMATOCRIT 40.1 % (36.0-47.0); HEMOGLOBIN 13.5 g/dL (12.0-15.5); LYMPH # 0.8 x10^3/uL (1.0-4.8); LYMPH % 14 % (24-48); MEAN CORPUSCULAR HEMOGLOBIN 29 pg (25-35); MEAN CORPUSCULAR HGB CONC 34 g/dL (31-37); MEAN CORPUSCULAR VOLUME 84 fL (79-100); MONO # 0.5 x10^3/uL (0.0-1.1); MONO % 8 % (0-9); NEUT # 4.5 x10^3/uL (1.8-7.7); NEUT % 77 % (31-73); PLATELET COUNT 187 x10^3/uL (140-400); RED BLOOD COUNT 4.74 x10^6/uL (3.50-5.40); RED CELL DISTRIBUTION WIDTH 13.5 % (11.5-14.5); WHITE BLOOD COUNT 5.8 x10^3/uL (4.0-11.0)
--- NOTE | 2020-04-20 16:59 | RAD ---
EXAM: CHEST ONE VIEW. HISTORY: Chest pain. COMPARISON: 03/04/2019. FINDINGS: A frontal view of the chest is obtained. A focal airspace infiltrate in the right upper lobe is consistent with pneumonia. A previously noted left upper lobe infiltrate has resolved. Hyperinflation is consistent with chronic obstructive pulmon antwan disease. A calcified granuloma is noted on the left. There is no pneumothorax or pleural effusion . The heart is not enlarged. There are atherosclerotic calcifications of the aorta. IMPRESSION: 1. Mild right upper lobe pneumonia. 2. Chronic obstructive pulmonary disease. Electronically signed by: Eliezer Barr MD (04/20/2020 4:56 PM) [facility]
[2020-04-20 17:13] LABS: CALCIUM 8.7 mg/dL (8.5-10.1); GFR 57.4; POTASSIUM 3.9 mmol/L (3.5-5.1)
[2020-04-20] MEDS ORDERED: cefTRIAXone IV Push 1 GM VIAL. IVP ONE (17:15)
[2020-04-20 17:19] LABS: ALBUMIN 3.2 g/dL (3.4-5.0); ALBUMIN/GLOBULIN RATIO 0.8 (1.0-1.7); MAGNESIUM 1.9 mg/dL (1.8-2.4); TOTAL BILIRUBIN 0.4 mg/dL (0.2-1.0); TOTAL PROTEIN 7.1 g/dL (6.4-8.2)
--- NOTE | 2020-04-20 17:43 | PHYS DOC ---
Past Medical History Past Medical History: Diabetes-Type II, Hypertension Additional Past Medical Histor: PANIC ATTACKS Past Surgical History: No Surgical History Additional Past Surgical Histo: PARACENTESIS Smoking Status: Current Every Day Smoker Alcohol Use: Occasionally Drug Use: None General Adult EDM: Chief Complaint: CHEST PAIN HPI: HPI: Patient is a 54 year old female who presented to ER due to fever chills, sore throat, cough, right-sided chest pain and body ache for 4 days. Patient also has low back pain that radiates to her right buttock area, whenever she sits on her right buttock the pain got worse. Patient denies any injury. Patient denies any bowel or bladder incontinence. Patient denies any abdominal pain, no nausea vomiting. Patient says she was exposed to somebody who tested positive for COVID-19 1 month ago. Patient has been tested for COVID-19 3-4 times already and they all came back negative. Review of Systems: Review of Systems: Constitutional: Positive for fever or chills. [] Eyes: Denies change in visual acuity. [] HENT: Denies nasal congestion or sore throat. [] Respiratory: Positive for cough and shortness of breath. [] Cardiovascular: Positive for chest pain , NO edema. [] GI: Denies abdominal pain, nausea, vomiting, bloody stools or diarrhea. [] : Denies dysuria. [] Musculoskeletal: Positive for lower back pain that radiating to right buttock area. Integument: Denies rash. [] Neurologic: Denies headache, focal weakness or sensory changes. [] Endocrine: Denies polyuria or polydipsia. [] Lymphatic: Denies swollen glands. [] Psychiatric: Denies depression or anxiety. [] Heart Score: Risk Factors: Risk Factors: DM, Current or recent (<one month) smoker, HTN, HLP, family history of CAD, obesity. Risk Scores: Score 0 - 3: 2.5% MACE over next 6 weeks - Discharge Home Score 4 - 6: 20.3% MACE over next 6 weeks - Admit for Clinical Observation Score 7 - 10: 72.7% MACE over next 6 weeks - Early Invasive Strategies Current Medications: Current Medications Medications (Trade) Dose Ordered Sig/Jude Start Time Stop Time Status Last Admin Dose Admin Ceftriaxone Sodium (Rocephin) 1 gm 1X ONCE 04/20/20 17:15 04/20/20 17:16 DC Ketorolac Tromethamine (Toradol 30mg Vial) 30 mg 1X ONCE 04/20/20 17:45 04/20/20 17:46 Allergies: Allergies: Allergies Coded Allergies Type Severity Reaction Last Updated Verified No Known Drug Allergies 06/03/16 No Physical Exam: PE: Constitutional: Well developed, well nourished, no acute distress, non-toxic appearance. [] HENT: Normocephalic, atraumatic, bilateral external ears normal, oropharynx moist, no oral exudates, nose normal. [] Eyes: PERRLA, EOMI, conjunctiva normal, no discharge. [] Neck: Normal range of motion, no tenderness, supple, no stridor. [] Cardiovascular:Heart rate regular rhythm, no murmur [] Lungs & Thorax: Bilateral breath sounds clear to auscultation [] Abdomen: Bowel sounds normal, soft, no tenderness, no masses, no pulsatile masses. [] Skin: Warm, dry, no erythema, no rash. [] Back: No tenderness, no CVA tenderness. There is no midline lumbar vertebral tenderness to palpation. No rash noted on buttock or back area. Extremities: No tenderness, no cyanosis, no clubbing, ROM intact, no edema. [] Neurologic: Alert and oriented X 3, normal motor function, normal sensory function, no focal deficits noted. [] Psychologic: Affect normal, judgement normal, mood normal. [] Current Patient Data: Labs: Laboratory Tests Test 04/20/20 16:26 White Blood Count 5.8 x10^3/uL (4.0-11.0) Red Blood Count 4.74 x10^6/uL (3.50-5.40) Hemoglobin 13.5 g/dL (12.0-15.5) Hematocrit 40.1 % (36.0-47.0) Mean Corpuscular Volume 84 fL (79-100) Mean Corpuscular Hemoglobin 29 pg (25-35) Mean Corpuscular Hemoglobin Concent 34 g/dL (31-37) Red Cell Distribution Width 13.5 % (11.5-14.5) Platelet Count 187 x10^3/uL (140-400) Neutrophils (%) (Auto) 77 % (31-73) H Lymphocytes (%) (Auto) 14 % (24-48) L Monocytes (%) (Auto) 8 % (0-9) Eosinophils (%) (Auto) 0 % (0-3) Basophils (%) (Auto) 1 % (0-3) Neutrophils # (Auto) 4.5 x10^3/uL (1.8-7.7) Lymphocytes # (Auto) 0.8 x10^3/uL (1.0-4.8) L Monocytes # (Auto) 0.5 x10^3/uL (0.0-1.1) Eosinophils # (Auto) 0.0 x10^3/uL (0.0-0.7) Basophils # (Auto) 0.0 x10^3/uL (0.0-0.2) Sodium Level 133 mmol/L (136-145) L Potassium Level 3.9 mmol/L (3.5-5.1) Chloride Level 97 mmol/L (98-107) L Carbon Dioxide Level 26 mmol/L (21-32) Anion Gap 10 (6-14) Blood Urea Nitrogen 10 mg/dL (7-20) Creatinine 1.0 mg/dL (0.6-1.0) Estimated GFR (Cockcroft-Gault) 57.4 BUN/Creatinine Ratio 10 (6-20) Glucose Level 191 mg/dL (70-99) H Calcium Level 8.7 mg/dL (8.5-10.1) Magnesium Level 1.9 mg/dL (1.8-2.4) Total Bilirubin 0.4 mg/dL (0.2-1.0) Aspartate Amino Transferase (AST) 18 U/L (15-37) Alanine Aminotransferase (ALT) 24 U/L (14-59) Alkaline Phosphatase 111 U/L (46-116) Troponin I Quantitative < 0.017 ng/mL (0.000-0.055) ZP-Lbw-Q-Type Natriuretic Peptide 202 pg/mL (0-124) H Total Protein 7.1 g/dL (6.4-8.2) Albumin 3.2 g/dL (3.4-5.0) L Albumin/Globulin Ratio 0.8 (1.0-1.7) L Lipase 77 U/L (73-393) Laboratory Tests 04/20/20 16:26 Laboratory Tests 04/20/20 16:26 Vital Signs: Vital Signs Date Time Temp Pulse Resp B/P (MAP) Pulse Ox O2 Delivery O2 Flow Rate FiO2 04/20/20 17:15 95 18 160/88 (112 97 Room Air EKG: EKG: EKG was done at 1609, heart rate 96 bpm, sinus rhythm, no ST segment elevation. Radiology/Procedures: Radiology/Procedures: [][facility] [address] [place] [address] IMAGING REPORT Signed PATIENT: BIGG MONSALVE LACCOUNT: [id number] : 1965 LOCATION: ER AGE: 54 SEX: F EXAM STATUS: PRE ER ORD. PHYSICIAN: LUBNA ENGLISH DO REASON: chest pain PROCEDURE: PORTABLE CHEST 1V EXAM: CHEST ONE VIEW. HISTORY: Chest pain. COMPARISON: 03/04/2019. FINDINGS: A frontal view of the chest is obtained. A focal airspace infiltrate in the right upper lobe is consistent with pneumo gordon. A previously noted left upper lobe infiltrate has resolved. Hyperinflation is consistent with chronic obstructive pulmonary disease. A calcified granuloma is noted on the left. There is no pneumothorax or pleural effusion. The heart is not enlarged. There are atherosclerotic calcifications of the aorta. IMPRESSION: 1. Mild right upper lobe pneumonia. 2. Chronic obstructive pulmonary disease. Electronically signed by: Eliezer Barr MD (04/20/2020 4:56 PM) [facility] DICTATED and SIGNED BY: KARTHIKEYAN BARR MD DATE: 04/20/20 [id number] Course & Med Decision Making: Course & Med Decision Making Pertinent Labs and Imaging studies reviewed. (See chart for details) Patient is a 54-year-old female who presented to ER due to cough, fever and chills. Chest x-ray showed right side infiltration. Patient will be treated for pneumonia. Patient was tested for COVID-19 infection as well, and lab work are pending at this time. Her low back pain that radiates to her right buttock area consistent with sciatica. Patient will be discharged home with some pain medication, anti-inflammatory. Dragon Disclaimer: Dragon Disclaimer: This electronic medical record was generated, in whole or in part, using a voice recognition dictation system. Departure Departure Impression: Primary Impression: Pneumonia Additional Impressions: Person under investigation for COVID-19 Sciatica of right side Disposition: 01 DC HOME SELF CARE/HOMELESS Condition: STABLE Referrals: UNKNOWN PCP NAME (PCP) Follow up with your doctor on Wednesday for reevaluation. Patient Instructions: Pneumonia, Adult, Sciatica Additional Instructions: You have been tested for or diagnosed with COVID-19. It is an infection caused by a new type of coronavirus. COVID-19 will cause cold-like or mild flu symptoms in most. It can cause more severe symptoms like problems breathing in some. There is no treatment for COVID-19. The body will clear the infection over time. Self-care will help to ease discomfort. Steps to Take: Self-Care Rest as needed. Healthy habits may help you feel better. Steps include: Choose healthy foods including fruits and vegetables. Drink water throughout the day. Get plenty of sleep each night. If you smoke, try to quit. It may ease breathing. Avoid alcohol. Keep Others Healthy The virus can spread to others. Droplets are released every time you sneeze or cough. The droplets can get into the mouth, nose, or eyes of people near you and lead to infection. To lower the chances of spreading COVID-19 to others: Stay at home until your doctor has said it is safe to leave. If you tested positive this will mean staying isolated until both of the following are true: At least 7 days have passed since the start of illness. You are free of fever for at least 72 hours without the use of medicine. During this time: - Avoid public areas, events, or transportation. Do not return to work or school until your doctor has said it is safe to do so. - Call ahead if you need to go to a medical center. Let them know you may have COVID-19. It will help them guide you where to go. They may also ask you to wear a facemask when you come to the office. - If you call for emergency medical services, let them know you may have COVID- 19. While at home: - Try to avoid close contact with others. Stay about 6 feet away. - If possible, spend most of your time in a separate room from others. - Use a face mask if you will be in close contact with others such as sharing a room or vehicle. - Have someone wipe down common surfaces in the home. Use household internal medicine hospitalist e very day on areas like doorknobs, counters, or sinks. - Cough or sneeze into a tissue. Throw the tissue away right after use. If a tissue is not available, cough or sneeze into your elbow. - Wash your hands often. Wash them after sneezing or coughing. Use soap and water and wash for at least 20 seconds. Alcohol based hand vacuum cleaner mechanic can be used if soap and water is not available. - Do not prepare food for others. Avoid sharing personal items like forks, spoons, or toothbrushes. - Avoid close contact with pets while you are sick. There is no evidence of the virus passing to pets. This is a safety step until more is known about this virus. Isolation can be frustrating. Social interaction can help. Keep in touch with friends and family through phone and tech options. You can still interact with others in your home, just keep a safe distance of about 6 feet. Follow-up: Your doctors office will check in with you to see if there are any changes in your health. You may be asked to keep track of symptoms to share with them. They will also let you know when you are clear to be in public again. Problems to Look Out For: Contact your doctor if your recovery is not going as you expect. Get emergency care if you have problems such as: - Trouble breathing - Nonstop chest pain or pressure - Changes in awareness, confusion, or problems waking - Lips or face have bluish color - Worsening of symptoms If you think you have an emergency, call for emergency medical services right away. As taken from [facility] Thank you for visiting our Emergency Department. We appreciate you trusting us with your care. If any additional problems come up don't hesitate to return to visit us. Please follow up with your primary care provider so they can plan additional care if needed and know about the problem that you had. If symptoms worsen come back to the Emergency Department. Any concerning symptoms that start such as chest pain, shortness of air, weakness or numbness on one side of the body, running high fevers or any other concerning symptoms return to the ER. Scripts Naproxen Sodium (ANAPROX DS) 550 Mg Tablet 1 TAB PO BID PRN for PAIN for 10 Days, #20 TAB 0 Refills Prov: LUBNA ENGLISH DO 04/20/20 Levofloxacin (LEVOFLOXACIN) 750 Mg Tablet 1 TAB PO DAILY for 7 Days, #7 TAB Prov: LUBNA ENGLISH DO 04/20/20 LUBNA ENGLISH DO Apr 20, 2020 17:43
[2020-04-20] MEDS ORDERED: KETOROLAC 30 MG/ML VIAL. IVP ONE (17:45)
[2020-04-20] MEDS ORDERED: LEVO750T5 PO (18:02)
[2020-04-20] MEDS ORDERED: NAPR-682 PO (18:02)
[2020-04-20 18:15] VITALS: BP 158/74
[2020-04-20] MEDS ORDERED: ACETAMINOPHEN 500 MG TABLET PO ONE (18:15)
--- NOTE | 2020-04-21 06:37 | EKG ---
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
--- NOTE | 2020-04-23 16:49 | NUR ---
IP: Late entry from 04/22/20 0900, pt informed of COVID negative test. Pt verbalized understanding.
== END 2020-04-20 19:00 | disposition home or self-care (01) ==
LOC: ER 15:59
DX: J18.9 Pneumonia, unspecified organism (principal); Z20.822 Contact with and (suspected) exposure to COVID-19; M54.41 Lumbago with sciatica, right side; E11.9 Type 2 diabetes mellitus without complications; I10 Essential (primary) hypertension; F17.200 Nicotine dependence, unspecified, uncomplicated
CPT/HCPCS: 36415; 71045; 80053; 83605; 83690; 83735; 83880; 84484; 85025; 87040; 87070; 87880; 93005; 96374; 96375; 99285; C9803; J0696; J1885; U0003

== ENCOUNTER 2020-11-16 12:10 | Emergency (ER) | payer BC ==
[~2020-11-16] VITALS: Ht 162.6 cm; Wt 77.2 kg
[~2020-11-16 12:10] MED LIST changes: -DOXY100C2 PO; +DOXY100C3 PO; +LEVO750T5 PO; +NAPR-682 PO
--- NOTE | 2020-11-16 13:12 | PHYS DOC ---
Past Medical History Past Medical History: Diabetes-Type II, Hypertension Additional Past Medical Histor: PANIC ATTACKS Past Surgical History: No Surgical History Additional Past Surgical Histo: PARACENTESIS Smoking Status: Current Every Day Smoker Alcohol Use: Occasionally Drug Use: None General Adult EDM: Chief Complaint: WRIST PAIN HPI: HPI: Patient is a 55 year old female without pertinent past medical history who presents with left wrist pain for the past month. Atraumatic. Pain is over the dorsal and radial aspect of the wrist and radiates towards the thumb. Worse with movement of the wrist. Has had some mild swelling in that same area. No fevers/chills. No breaks in the skin. Has used an Alexandre wrap, but has not braced it otherwise. Has had similar pain in the past that got better over time. Does not recall any repetitive motions. Review of Systems: Review of Systems: Constitutional: Denies fever or chills. [] Eyes: Denies change in visual acuity. [] HENT: Denies nasal congestion or sore throat. [] Respiratory: Denies cough or shortness of breath. [] Cardiovascular: Denies chest pain or edema. [] GI: Denies abdominal pain, nausea, vomiting, bloody stools or diarrhea. [] : Denies dysuria. [] Musculoskeletal: Left wrist pain [] Integument: Denies rash. [] Neurologic: Denies headache, focal weakness or sensory changes. [] Endocrine: Denies polyuria or polydipsia. [] Lymphatic: Denies swollen glands. [] Psychiatric: Denies depression or anxiety. [] Heart Score: C/O Chest Pain: No Risk Factors: Risk Factors: DM, Current or recent (<one month) smoker, HTN, HLP, family history of CAD, obesity. Risk Scores: Score 0 - 3: 2.5% MACE over next 6 weeks - Discharge Home Score 4 - 6: 20.3% MACE over next 6 weeks - Admit for Clinical Observation Score 7 - 10: 72.7% MACE over next 6 weeks - Early Invasive Strategies Allergies: Allergies: Allergies Coded Allergies Type Severity Reaction Last Updated Verified No Known Drug Allergies 06/03/16 No Physical Exam: PE: Constitutional: Well developed, well nourished, no acute distress, non-toxic appearance. [] HENT: Normocephalic, atraumatic, bilateral external ears normal, oropharynx moist, no oral exudates, nose normal. [] Eyes: PERRLA, EOMI, conjunctiva normal, no discharge. [] Neck: Normal range of motion, no tenderness, supple, no stridor. [] Cardiovascular:Heart rate regular rhythm, no murmur [] Lungs & Thorax: Bilateral breath sounds clear to auscultation [] Abdomen: Bowel sounds normal, soft, no tenderness, no masses, no pulsatile masses. [] Skin: Warm, dry, no erythema, no rash. [] Back: No tenderness, no CVA tenderness. [] Extremities: Tenderness over the dorsal/radial wrist. Made worse with adduction of the thumb and ulnar deviation at the wrist. Mild swelling over this area. No skin changes. Median, ulnar, radial nerves intact through sensory and motor functions. 2+ DP pulse. No evidence of trauma. [] Neurologic: Alert and oriented X 3, normal motor function, normal sensory function, no focal deficits noted. [] Psychologic: Affect normal, judgement normal, mood normal. [] Current Patient Data: Vital Signs: Vital Signs Date Time Temp Pulse Resp B/P (MAP) Pulse Ox O2 Delivery O2 Flow Rate FiO2 11/16/20 12:15 97.8 100 16 151/90 (110) 98 Room Air 97.8 EKG: EKG: [] Radiology/Procedures: Radiology/Procedures: [] Impression: [facility] [address] [place], [place] [id number] IMAGING REPORT Signed PATIENT: BIGG MONSALVE LACCOUNT: [id number] : 1965 LOCATION: ER AGE: 55 SEX: F EXAM STATUS: REG ER ORD. PHYSICIAN: KARTHIKEYAN QUICK MD REASON: ATRAUMATIC WRIST PAIN PROCEDURE: WRIST 3V LEFT XR LT WRIST 3VIEWS Clinical indications: Reason: ATRAUMATIC WRIST PAIN / Spl. Instructions: / History: Findings: No acute fracture or dislocation or osteolytic process is evident. The scaphoid bone is intact. IMPRESSION: No acute osseous abnormality is evident. Electronically signed by: Nito Tyson MD (11/16/2020 1:43 PM) [id number] DICTATED and SIGNED BY: NITO TYSON MD DATE: 11/16/20 [id number] Course & Med Decision Making: Course & Med Decision Making Pertinent Labs and Imaging studies reviewed. (See chart for details) Patient is a 55-year-old female presents with 1 month of progressive left wrist soreness. History and exam is consistent with de Quervain's tenosynovitis. No evidence of septic arthritis or overlying cellulitis. No trauma. No history of gout, no evidence of joint effusion. We will obtain a plain film of the wrist and placed into a thumb spica splint. Have advised NSAID use for 7-10 days and follow-up with PCP. Alex Disclaimer: Dragon Disclaimer: This electronic medical record was generated, in whole or in part, using a voice recognition dictation system. Departure Departure Impression: Primary Impression: De Quervain's tenosynovitis, left Disposition: 01 HOME / SELF CARE / HOMELESS Condition: STABLE Referrals: UNKNOWN PCP NAME (PCP) Please schedule follow-up appointment with your PCP in approximately 10-14 days. Patient Instructions: De Quervain's Tenosynovitis-SportsMed Additional Instructions: Believe you have a tendinitis called de Quervain's tenosynovitis. Treatment is with bracing and with NSAIDs (ibuprofen or naproxen). Please keep your brace in place. You can remove it once a day for brief range of motion of your wrist in all directions. Please follow-up with your primary care doctor in 10-14 days to ensure that your symptoms are improving. KARTHIKEYAN QUICK MD Nov 16, 2020 13:12
[2020-11-16 13:44] VITALS: BP 131/73
--- NOTE | 2020-11-16 13:45 | RAD ---
XR LT WRIST 3VIEWS Clinical indications: Reason: ATRAUMATIC WRIST PAIN / Spl. Instructions: / History: Findings: No acute fracture or dislocation or osteolytic process is evident. The scaphoid bone is in tact. IMPRESSION: No acute osseous abnormality is evident. Electronically signed by: Valeriy Tyson MD (11/16/2020 1:43 PM) [id number]
== END 2020-11-16 14:00 | disposition home or self-care (01) ==
LOC: ER 12:10
DX: M65.4 Radial styloid tenosynovitis [de Quervain] (principal); E11.9 Type 2 diabetes mellitus without complications; I10 Essential (primary) hypertension; F17.200 Nicotine dependence, unspecified, uncomplicated
CPT/HCPCS: 29125; 73120; 99283